=== PATIENT | female | born 1995 | race Caucasian/White ===

== ENCOUNTER 2017-05-18 13:45 | Emergency (ER) | payer MEDICAID ==
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
--- NOTE | 2017-05-21 14:02 | US ---
OB ultrasound. Findings: Single live intrauterine . [place]-rump length 6.6 cm. This correlates to 13 weeks 0 days gestation. Estimated delivery date 11/23/2017. Heart rate 156 bpm. Posterior located placenta ap pears unremarkable. No abruption. Left ovary unremarkable. Right ovary not seen. Impression: 1. Single live imaging of at 13 weeks gestation. Recommend anatomic survey 20 weeks.
== END 2017-05-18 16:10 | disposition home or self-care (01) ==
LOC: JP.ED 13:45
DX: O9A.211 Injury, poisoning and certain other consequences of external causes complicating pregnancy, first trimester (principal); S30.1XXA Contusion of abdominal wall, initial encounter; V49.9XXA Car occupant (driver) (passenger) injured in unspecified traffic accident, initial encounter; Z91.048 Other nonmedicinal substance allergy status; Z79.899 Other long term (current) drug therapy; Z3A.13 13 weeks gestation of pregnancy
CPT/HCPCS: 76815; 76815-26; 99284-25

== ENCOUNTER 2017-11-13 11:15 | Inpatient (IN) | payer MEDICAID ==
[2017-11-13] MEDS ORDERED: Misoprostol 50 MCG (1/2 of 100 MCG) Tab VAG ONE (11:57)
[2017-11-13] MEDS ORDERED: Acetaminophen 325 MG Tab PO PRN (12:10)
[2017-11-13] MEDS ORDERED: Ondansetron 4 MG Tab.DIS PO PRN (12:10)
[2017-11-13] MEDS ORDERED: Sodium Chloride 0.9% 10 ML Syringe FLUSH PRN (12:10)
--- NOTE | 2017-11-13 12:20 | PCM.LDHP ---
L&D History of Present Illness - General Date of Service: 11/13/17 (labor) Admit Problem/Dx: Patient Status Order with Admit Dx/Problem 11/13/17 12:10 Patient Status [ADT] Routine Admission Diagnosis/Problem Admission Diagnosis/Problem Source of Information: Patient History Limitations: Reports: No Limitations - History of Present Illness Introduction:: 21 year old 39 1/7 weeks with contractions. She is GBS positive. CE / and darell in the office this morning. Will augment contractions with Misoprostol vaginally LABS: ABO A pos HIV neg Rubella immune GBS pos Timing/Duration: Reports: minutes: (5) Location, : Reports: Abdomen Quality: Reports: Pressure Severity: Mild Improves with: Reports: None Worsens with: Reports: None - Related Data Allergies/Adverse Reactions: Allergies Allergy/AdvReac Type Severity Reaction Status Date / Time cat dander Allergy Other Verified 05/18/17 14:21 Home Medications: Home Meds Pnv with Ca,No.74/Iron/Fa [ Low Iron Tablet] 1 tab PO DAILY 05/18/17 [ History] Past Medical History - Past Health History Medical/Surgical History: Denies Medical/Surgical History Social & Family History - Family History HEENT: Reports: None Cardiac: Reports: CAD Respiratory: Reports: Asthma Musculoskeletal: Reports: Fibromyalgia - Tobacco Use Smoking Status *Q: Never Smoker Second Hand Smoke Exposure: No - Caffeine Use Caffeine Use: Reports: Soda, Tea - Recreational Drug Use Recreational Drug Use: No H&P Review of Systems - Review of Systems: Review Of Systems: See Below General: Reports: No Symptoms HEENT: Reports: No Symptoms Pulmonary: Reports: No Symptoms Cardiovascular: Reports: No Symptoms Gastrointestinal: Reports: No Symptoms Genitourinary: Reports: No Symptoms Musculoskeletal: Reports: No Symptoms Skin: Reports: No Symptoms Psychiatric: Reports: No Symptoms Neurological: Reports: No Symptoms Hematologic/Lymphatic: Reports: No Symptoms Immunologic: Reports: No Symptoms L&D Exam - Exam Exam: See Below - Vital Signs Weight: 195 lb - OB Specific Contraction Intensity: Mild Movement: Active Heart Tones: Present Heart Tones per Min: 144 Heart Rate (FHR) Variability: Moderate (6-25 bmp) Presentation: Vertex Estimated Weight: 8 pounds - Cade Score Cade Score Cervix Position: Anterior Cade Score Consistency: Soft Cade Score Effacement: 51-70% Cade Score Dilation: 3-4 cm Cade Score Infant's Station: -1 ,0 Cade Score Total: 10 - Exam General: Alert, Oriented HEENT: PERRLA, Pupils Equal Neck: Supple Lungs: Clear to Auscultation, Normal Respiratory Effort Cardiovascular: Regular Rate, Regular Rhythm GI/Abdominal Exam: Normal Bowel Sounds Rectal Exam: Normal Exam Genitourinary: Normal external exam, Cervical dilitation, Enlarged uterus Back Exam: Normal Inspection Extremities: Normal Inspection, No Pedal Edema Skin: Warm, Dry Neurological: Cranial Nerves Intact, Reflexes Equal Bilateral Psychiatric: Alert, Normal Affect, Normal Mood - Patient Data Lab Results Last 24 hrs: Laboratory Results - last 24 hr 11/13/17 Range/Units 11:55 WBC 11.6 H (4.5-11.0) K/uL RBC 4.91 (3.30-5.50) M/uL Hgb 12.4 (12.0-15.0) g/dL Hct 39.0 (36.0-48.0) % MCV 79 L (80-98) fL MCH 25 L (27-31) pg MCHC 32 (32-36) % Plt Count 405 H (150-400) K/uL Neut % (Auto) 66 (36-66) % Lymph % (Auto) 25 (24-44) % [place] % (Auto) 7 H (2-6) % Eos % (Auto) 2 (2-4) % Baso % (Auto) 0 (0-1) % Result Diagrams: 11/13/17 11:55 - Problem List (1) SNOMED Code(s): 15742999 ICD Code: Z34.90 - ENCNTR FOR SUPRVSN OF NORMAL , UNSP, UNSP TRIMESTER Status: Acute Current Visit: Yes Qualifiers: Weeks of gestation: 39 weeks Qualified Code(s): Z3A.39 - 39 weeks gestation of (2) Active labor at term SNOMED Code(s): 86203234 ICD Code: VSZ7065 - Status: Acute Current Visit: Yes Problem List Initiated/Reviewed/Updated: Yes Orders Last 24hrs: Active Orders 24 hr Category Date Time Status Patient Status [ADT] Routine ADT 11/13/17 12:10 Ordered Antiembolic Devices [RC] .Routine Care 11/13/17 12:12 Ordered Heart Tones [RC] INTERMITTENT Care 11/13/17 12:11 Ordered May Shower [RC] ASDIRECTED Care 11/13/17 12:10 Ordered Notify Provider [RC] PRN Care 11/13/17 12:10 Ordered Peripheral IV Care [RC] . DIRECTED Care 11/13/17 12:12 Ordered Up ad Rut [RC] ASDIRECTED Care 11/13/17 12:10 Ordered VTE/DVT Education [RC] Click to Edit Care 11/13/17 12:12 Ordered Vital Signs [RC] PER UNIT ROUTINE Care 11/13/17 12:10 Ordered Regular Diet [DIET] Diet 11/13/17 Lunch Ordered URINALYSIS W/MICROSCOPIC [UA W/MICROSCOPIC] [URIN] Lab 11/13/17 11:24 Ordered Routine Acetaminophen [Tylenol] Med 11/13/17 12:10 Ordered 650 mg PO Q4H PRN Ondansetron [Zofran ODT] Med 11/13/17 12:10 Ordered 4 mg PO Q4H PRN Oxytocin/Normal Saline [Pitocin in NS 20 Units/1,000 ML Med 11/13/17 12:13 Ordered ] 20 unit in 1,000 ml IV ONETIME Penicillin G Potassium [Pfizerpen] 2.5 millunits Med 11/13/17 12:15 Ordered Sodium Chloride 0.9% [Normal Saline] 50 ml IV Q4H Penicillin G Potassium [Pfizerpen] 5 millunits Med 11/13/17 12:13 Ordered Sodium Chloride 0.9% [Normal Saline] 100 ml IV ONETIME Sodium Chloride 0.9% [Saline Flush] Med 11/13/17 12:10 Ordered 10 ml FLUSH ASDIRECTED PRN DVT/VTE Prophylaxis Reflex [OM.PC] Routine Oth 11/13/17 12:10 Ordered Peripheral IV Insertion Adult [OM.PC] Routine Oth 11/13/17 12:10 Ordered Resuscitation Status Routine Resus Stat 11/13/17 12:10 Ordered Medication Orders Acetaminophen (Tylenol) 650 mg PO Q4H PRN PRN Reason: mild pain and fever Oxytocin/Sodium Chloride (Pitocin In Ns 20 Units/1,000 Ml) 20 unit in 1,000 mls @ 999 mls/hr IV ONETIME ONE; Protocol Stop: 11/13/17 13:13 Penicillin G Potassium 5 (millunits/ Sodium Chloride) 100 mls @ 200 mls/hr IV ONETIME ONE Stop: 11/13/17 12:42 Penicillin G Potassium 2.5 (millunits/ Sodium Chloride) 50 mls @ 100 mls/hr IV Q4H [place] Ondansetron HCl (Zofran Odt) 4 mg PO Q4H PRN PRN Reason: Nausea/Vomiting Sodium Chloride (Saline Flush) 10 ml FLUSH ASDIRECTED PRN PRN Reason: Keep Vein Open Assessment/Plan Comment:: 11/13/17 39 1/7 week IUP who is darell CE /0 augment contractions with Miso vaginally monitor for active labor Plan for vaginal delivery Pain medication per patient request.
[2017-11-13] MEDS ORDERED: Penicillin G Potassium 5 MILLUNITS in Sodium Chloride 0.9% 100 ML IV ONE (12:30)
--- NOTE | 2017-11-13 16:16 | PCM.PNLD ---
Labor Progress Note - VS & Meds Vital Signs: Last Vital Signs Temp 98.2 F 11/13/17 14:00 Pulse 96 11/13/17 14:30 Resp 16 11/13/17 12:30 BP 124/82 11/13/17 14:30 Pulse Ox 99 11/13/17 14:30 Active Medications: Current Medications Acetaminophen (Tylenol) 650 mg PO Q4H PRN PRN Reason: mild pain and fever Oxytocin/Sodium Chloride (Pitocin In Ns 20 Units/1,000 Ml) 20 unit in 1,000 mls @ 999 mls/hr IV ASDIRECTED [place]; Protocol Penicillin G Potassium 2.5 (millunits/ Sodium Chloride) 50 mls @ 100 mls/hr IV Q4H [place] Lactated Ringer's (Ringers, Lactated) 1,000 mls @ 999 mls/hr IV BOLUS ONE Stop: 11/13/17 18:00 Ondansetron HCl (Zofran Odt) 4 mg PO Q4H PRN PRN Reason: Nausea/Vomiting Sodium Chloride (Saline Flush) 10 ml FLUSH ASDIRECTED PRN PRN Reason: Keep Vein Open Discontinued Medications Penicillin G Potassium 5 (millunits/ Sodium Chloride) 100 mls @ 200 mls/hr IV ONETIME ONE Stop: 11/13/17 12:59 Last Admin: 11/13/17 12:30 Dose: 200 mls/hr Misoprostol (Cytotec) 50 mcg VAG ONETIME ONE Stop: 11/13/17 11:58 Last Admin: 11/13/17 12:00 Dose: 50 mcg - Uterine Contractions Uterine Monitoring Mode: External [place] Contraction Frequency (min): x3 Contraction Duration (sec): 70 Contraction Intensity: Mild Uterine Resting Tone: Soft - Monitoring Monitor Mode: Doppler/Auscultation Heart Rate (FHR) Baseline: 145 Heart Rate (FHR) Variability: Moderate (6-25 bmp) Accelerations: Present, 15x15 Decelerations: None Strip Review: Category I - Vaginal Exam Dilation (cm): 4 Effacement (Percent): 80 Station: 1 Cervical Position: Anterior Sterile Vaginal Exam Performed By: Phyllis Ge Vaginal Exam Comment: AROM clear fliud - Labor Progress (Free Text) Labor Progress: contractions every 2 minutes, getting stronger cat one strip AROM clear fluid planning for vaginal delivery
[2017-11-13] MEDS: Penicillin G Potassium 2.5 MILLUNITS in Sodium Chloride 0.9% 50 ML IV SCH ×2 (16:24→21:42)
[2017-11-13] MEDS: fentaNYL 100 MCG/2 ML SDV IVPUSH PRN ×3 (16:45→18:51)
[2017-11-13] MEDS ORDERED: fentaNYL 100 MCG/2 ML SDV IVPUSH SCH (16:45)
[2017-11-13] MEDS ORDERED: Lactated Ringers 1,000 ML IV ONE (17:00)
--- NOTE | 2017-11-13 18:57 | PCM.PNLD ---
Labor Progress Note - VS & Meds Vital Signs: Last Vital Signs Temp 98.2 F 11/13/17 14:00 Pulse 107 H 11/13/17 15:30 Resp 18 11/13/17 15:30 BP 123/80 11/13/17 15:30 Pulse Ox 96 11/13/17 15:30 Active Medications: Current Medications Acetaminophen (Tylenol) 650 mg PO Q4H PRN PRN Reason: mild pain and fever Fentanyl (Sublimaze) 100 mcg IVPUSH Q1H PRN PRN Reason: Pain (severe 7-10) Last Admin: 11/13/17 18:51 Dose: 100 mcg Oxytocin/Sodium Chloride (Pitocin In Ns 20 Units/1,000 Ml) 20 unit in 1,000 mls @ 999 mls/hr IV ASDIRECTED [place]; Protocol Penicillin G Potassium 2.5 (millunits/ Sodium Chloride) 50 mls @ 100 mls/hr IV Q4H [place] Last Admin: 11/13/17 16:24 Dose: 100 mls/hr Ondansetron HCl (Zofran Odt) 4 mg PO Q4H PRN PRN Reason: Nausea/Vomiting Last Admin: 11/13/17 18:52 Dose: 4 mg Sodium Chloride (Saline Flush) 10 ml FLUSH ASDIRECTED PRN PRN Reason: Keep Vein Open Discontinued Medications Fentanyl (Sublimaze) 100 mcg IVPUSH Q1H [place] Penicillin G Potassium 5 (millunits/ Sodium Chloride) 100 mls @ 200 mls/hr IV ONETIME ONE Stop: 11/13/17 12:59 Last Admin: 11/13/17 12:30 Dose: 200 mls/hr Lactated Ringer's (Ringers, Lactated) 1,000 mls @ 999 mls/hr IV BOLUS ONE Stop: 11/13/17 18:00 Misoprostol (Cytotec) 50 mcg VAG ONETIME ONE Stop: 11/13/17 11:58 Last Admin: 11/13/17 12:00 Dose: 50 mcg - Uterine Contractions Uterine Monitoring Mode: External [place] Contraction Frequency (min): 1 Contraction Duration (sec): 30-70 Contraction Intensity: Strong Uterine Resting Tone: Soft - Monitoring Monitor Mode: Doppler/Auscultation Heart Rate (FHR) Baseline: 145 Heart Rate (FHR) Variability: Moderate (6-25 bmp) Accelerations: Present, 15x15 Decelerations: None Strip Review: Category I - Vaginal Exam Dilation (cm): 5 Effacement (Percent): 90 Station: 1 Cervical Position: Anterior Sterile Vaginal Exam Performed By: Phyllis Ge Vaginal Exam Comment: lots of pressure and pain, requesting Fentanyl - Labor Progress (Free Text) Labor Progress: Has been in the tub for 2 hours, doing great. progress now active labor.
[2017-11-13] MEDS ORDERED: Lidocaine 1% 50 ML MDV ONE (19:23)
[2017-11-13] MEDS ORDERED: Lanolin 100% Cream 40 GM Tube TOP PRN (21:14)
[2017-11-13] MEDS ORDERED: Benzocaine 20% Top Spray 56 GM Bottle TOP PRN (21:14)
[2017-11-13] MEDS ORDERED: Witch Hazel Medicated Pads 100/Jar TOP PRN (21:14)
[2017-11-13] MEDS ORDERED: Acetaminophen 325 MG Tab, 50 Tab Bulk Bottle PO PRN (21:16)
[2017-11-13] MEDS ORDERED: Ibuprofen 200 MG Tab, 24 Tab Bulk Bottle PO PRN (21:16)
--- NOTE | 2017-11-13 21:24 | PCM.DEL ---
L & D Note - General Info Date of Service: 11/13/17 (Childbirth) - Delivery Note Labor: Spontaneous Cervical Ripening Method: Misoprostil Delivery Outcome: Livebirth Infant Delivery Method: Spontaneous Vaginal Delivery-Single Infant Delivery Mode: Spontaneous Presentation: Right Occiput Anterior (LENARD) Nuchal Cord: Present Anesthesia Type: Local Anesthetic: Lidocaine (Xylocaine) 1% Plain Local Anesthetic Volume: 5cc Amniotic Fluid Description: Clear Episiotomy Type: None Laceration: 1st Degree, Perineal Suture type: Vicryl Suture size: 3-0 Placenta: Intact, Spontaneous Cord: 3 Vessels Estimated Blood Loss: 300 Resuscitation Needed: Yes [place]: Bulb Syringe, Stimulated, Warmed, [place] Used, Warmer Used Provider: Phyllis Ge Score 1 min: 6 Score 5 min: 8 Score 10 min: 8 Second Stage Interventions: Reports: Second Nurse Reviewed Heart Tones, Encouragement Given, Pushing Effectively, Pushing, McRobert's Position, Pushing , Pulls Own Legs Back Delivery Comments (Free Text/Narrative):: This 21 year old G1 now P1 who is 39 1/7 weeks gestation delivered at 2035 via a female infant in [facility]. Mother had pushed for an hour with different position changes. The baby presented with a tight nuchal cord and and and anterior hand presentation. I could not reduce the cord manually so it was clamped and cut and baby was delivered onto mother's abdomen. She was floppy and pale. She was taken to the warmer where she was dried and stimulated. She made no effort to cry. I started PPV and after 30 second she started crying. Her heart rate was in the 140's and her O2 sats high 90's. She transitioned slowly and had apgars of 6,8,8. Lungs were clear and she is awake and alert. Three vessel cord. The placenta was expressed spontaneously intact . three vessel cord. Winter had a small first degree perineal tear which was repaired with 3-0 vicryl.. No lacerations of the cervix, rectum, vagina were found. EBL 300cc Mother and baby to post and nursery in stable condition. first stage 6136-2414 Second stage 1280-3723 Third stage 4610-8518 Weight 6-6 Induction Criteria - Cade Score Cade Score Dilation: 3-4 cm Cade Score Effacement: 60-70% Cade Score 's Station: -1 ,0 Cade Score Consistency: Soft Cade Score Cervix Position: Anterior Cade Score Total: 10 Cade Score Presenting Part: Reports: Cephalic - Augmentation Estimated Pelvis: Reports: Adequate Weight Estimated:: Reports: AGA Reassuring Monitoring Strip: Yes Absence of Tachy Systole: Yes - General Info Date of Service: 11/13/17 Functional Status: Reports: Pain Controlled - Review of Systems General: Reports: No Symptoms HEENT: Reports: No Symptoms Pulmonary: Reports: No Symptoms Cardiovascular: Reports: No Symptoms Gastrointestinal: Reports: No Symptoms Genitourinary: Reports: No Symptoms Musculoskeletal: Reports: No Symptoms Skin: Reports: No Symptoms Neurological: Reports: No Symptoms Psychiatric: Reports: No Symptoms - Patient Data Vitals - Most Recent: Last Vital Signs Temp 98.2 F 11/13/17 14:00 Pulse 107 H 11/13/17 15:30 Resp 18 11/13/17 15:30 BP 123/80 11/13/17 15:30 Pulse Ox 96 11/13/17 15:30 Weight - Most Recent: 195 lb I&O - Last 24 Hours: Intake & Output 11/13/17 11/13/17 11/13/17 06:59 14:59 22:59 Intake Total 100 50 Balance 100 50 Lab Results Last 24 Hours: Laboratory Results - last 24 hr 11/13/17 11/13/17 11/13/17 Range/Units 11:24 11:55 15:29 WBC 11.6 H (4.5-11.0) K/uL RBC 4.91 (3.30-5.50) M/uL Hgb 12.4 (12.0-15.0) g/dL Hct 39.0 (36.0-48.0) % MCV 79 L (80-98) fL MCH 25 L (27-31) pg MCHC 32 (32-36) % Plt Count 405 H (150-400) K/uL Neut % (Auto) 66 (36-66) % Lymph % (Auto) 25 (24-44) % [place] % (Auto) 7 H (2-6) % Eos % (Auto) 2 (2-4) % Baso % (Auto) 0 (0-1) % Urine Color Yellow Urine Appearance Slightly cloudy Urine pH 9.0 H (4.5-8.0) Ur Specific [place] 1.010 (1.008-1.030) Urine Protein Negative (NEGATIVE) mg/dL Urine Glucose (UA) Normal (NEGATIVE) mg/dL Urine Ketones Negative (NEGATIVE) mg/dL Urine Occult Blood Negative (NEGATIVE) Urine Nitrite Negative (NEGATIVE) Urine Bilirubin Negative (NEGATIVE) Urine Urobilinogen Normal (NORMAL) mg/dL Ur Leukocyte Esterase Negative (NEGATIVE) Urine RBC 0-5 (0-5) Urine WBC 0-5 (0-5) Ur Epithelial Cells Many Amorphous Sediment Not seen Urine Bacteria Moderate Urine Mucus Moderate Urine Opiates Screen Negative (NEGATIVE) Ur Oxycodone Screen Negative (NEGATIVE) Urine Methadone Screen Negative (NEGATIVE) Ur Propoxyphene Screen Negative (NEGATIVE) Ur Barbiturates Screen Negative (NEGATIVE) Ur Tricyclics Screen Negative (NEGATIVE) Ur Phencyclidine Scrn Negative (NEGATIVE) Ur Amphetamine Screen Negative (NEGATIVE) U Methamphetamines Scrn Negative (NEGATIVE) Urine MDMA Screen Negative (NEGATIVE) U Benzodiazepines Scrn Negative (NEGATIVE) U Cocaine Metab Screen Negative (NEGATIVE) U Marijuana (THC) Screen Negative (NEGATIVE) Med Orders - Current: Current Medications Acetaminophen (Tylenol) 650 mg PO Q4H PRN PRN Reason: mild pain and fever Fentanyl (Sublimaze) 100 mcg IVPUSH Q1H PRN PRN Reason: Pain (severe 7-10) Last Admin: 11/13/17 18:51 Dose: 100 mcg Oxytocin/Sodium Chloride (Pitocin In Ns 20 Units/1,000 Ml) 20 unit in 1,000 mls @ 999 mls/hr IV ASDIRECTED [place]; Protocol Penicillin G Potassium 2.5 (millunits/ Sodium Chloride) 50 mls @ 100 mls/hr IV Q4H [place] Last Admin: 11/13/17 16:24 Dose: 100 mls/hr Ondansetron HCl (Zofran Odt) 4 mg PO Q4H PRN PRN Reason: Nausea/Vomiting Last Admin: 11/13/17 18:52 Dose: 4 mg Sodium Chloride (Saline Flush) 10 ml FLUSH ASDIRECTED PRN PRN Reason: Keep Vein Open Discontinued Medications Fentanyl (Sublimaze) 100 mcg IVPUSH Q1H [facility] Penicillin G Potassium 5 (millunits/ Sodium Chloride) 100 mls @ 200 mls/hr IV ONETIME ONE Stop: 11/13/17 12:59 Last Admin: 11/13/17 12:30 Dose: 200 mls/hr Lactated Ringer's (Ringers, Lactated) 1,000 mls @ 999 mls/hr IV BOLUS ONE Stop: 11/13/17 18:00 Lidocaine HCl (Xylocaine 1%) Confirm Administered Dose 100 ml .ROUTE .STK-MED ONE Stop: 11/13/17 19:24 Misoprostol (Cytotec) 50 mcg VAG ONETIME ONE Stop: 11/13/17 11:58 Last Admin: 11/13/17 12:00 Dose: 50 mcg - Exam General: Alert, Oriented HEENT: Pupils Equal Neck: Supple Lungs: Clear to Auscultation, Normal Respiratory Effort Cardiovascular: Regular Rate, Regular Rhythm GI/Abdominal Exam: Normal Bowel Sounds (Female) Exam: Cervical Dilatation, Enlarged Uterus, Vaginal Bleeding Back Exam: Normal Inspection Extremities: Normal Inspection, Normal Range of Motion, No Pedal Edema, Normal Capillary Refill Skin: Warm Wound/Incisions: Healing Well Neurological: No New Focal Deficit Psy/Mental Status: Alert, Normal Affect, Normal Mood - Problem List & Annotations (1) SNOMED Code(s): 44540082 Code(s): Z34.90 - ENCNTR FOR SUPRVSN OF NORMAL , UNSP, UNSP TRIMESTER Status: Acute Current Visit: Yes Qualifiers: Weeks of gestation: 39 weeks Qualified Code(s): Z3A.39 - 39 weeks gestation of (2) Active labor at term SNOMED Code(s): 16786426 Code(s): NVF2839 - Status: Acute Current Visit: Yes (3) () SNOMED Code(s): 419594005 Code(s): Z78.9 - OTHER SPECIFIED HEALTH STATUS Status: Acute Current Visit: Yes (4) Normal labor and delivery SNOMED Code(s): 40964524, 720967118 Code(s): O80 - ENCOUNTER FOR FULL-TERM UNCOMPLICATED DELIVERY Status: Acute Current Visit: Yes (5) GBS (group B Streptococcus carrier), +RV culture, currently SNOMED Code(s): 6329237196906, 729992904, 6161709157916 Code(s): O99.820 - STREPTOCOCCUS B CARRIER STATE COMPLICATING Status: Acute Current Visit: Yes - Problem List Review Problem List Initiated/Reviewed/Updated: Yes - My Orders Last 24 Hours: My Active Orders 11/13/17 12:10 Patient Status [ADT] Routine May Shower [RC] ASDIRECTED Notify Provider [RC] PRN Up ad Rut [RC] ASDIRECTED Vital Signs [RC] PER UNIT ROUTINE Acetaminophen [Tylenol] 650 mg PO Q4H PRN Ondansetron [Zofran ODT] 4 mg PO Q4H PRN Sodium Chloride 0.9% [Saline Flush] 10 ml FLUSH ASDIRECTED PRN DVT/VTE Prophylaxis Reflex [OM.PC] Routine Peripheral IV Insertion Adult [OM.PC] Routine Resuscitation Status Routine 11/13/17 12:12 Antiembolic Devices [RC] .Routine Peripheral IV Care [RC] . DIRECTED VTE/DVT Education [RC] Click to Edit 11/13/17 12:13 Oxytocin/Normal Saline [Pitocin in NS 20 Units/1,000 ML] 20 unit in 1,000 ml IV ASDIRECTED 11/13/17 16:30 Penicillin G Potassium [Pfizerpen] 2.5 millunits Sodium Chloride 0.9% [Normal Saline] 50 ml IV Q4H 11/13/17 16:40 fentaNYL [Sublimaze] 100 mcg IVPUSH Q1H PRN 11/13/17 21:14 Patient Status [ADT] Routine Vital Signs [RC] PFP Benzocaine [[id number] 20% [place]] See Dose Instructions TOP Q4H PRN Lanolin [Lansinoh HPA] 1 gm TOP ASDIRECTED PRN Witch Svetlana [Tucks] 1 pad TOP ASDIRECTED PRN Assess Uterine Involution [WOMSER] Per Unit Routine 11/13/17 21:15 Ice Therapy [OM.PC] Per Unit Routine Perineal Care [OM.PC] Per Unit Routine Peripheral IV Discontinue [OM.PC] Routine Sitz Bath [OM.PC] Per Unit Routine 11/13/17 21:16 Acetaminophen [Tylenol Bulk Bottle] 325 mg PO Q4H PRN Ibuprofen [Motrin Bulk Bottle] 600 mg PO Q6H PRN 11/13/17 Lunch Regular Diet [DIET] 11/14/17 05:11 CBC WITH AUTO DIFF [HEME] AM - Assessment Assessment:: 11/13/17 21 year old 39 1/7 with tight nuchal cord and hand by face. Small first degree tear with repair female . - Plan Plan:: 11/13/17 39 1/7 week IUP who is darell CE / augment contractions with Miso vaginally monitor for active labor Plan for vaginal delivery Pain medication per patient request. 11/13/17 Routine cares support 48 hour stay due to positive GSB status cbc in am
[2017-11-13] MEDS ORDERED: Acetaminophen/Codeine 300-30 MG Tab PO PRN (22:03)
[2017-11-14] MEDS: Penicillin G Potassium 2.5 MILLUNITS in Sodium Chloride 0.9% 50 ML IV SCH ×2 (05:31→05:32)
--- NOTE | 2017-11-14 08:27 | PCM.PNPP ---
- General Info Date of Service: 11/14/17 (PPD 1) Admission Dx/Problem (Free Text): Patient Status Order with Admit Dx/Problem 11/13/17 12:10 Patient Status [ADT] Routine Admission Diagnosis/Problem Admission Diagnosis/Problem Functional Status: Reports: Pain Controlled - Review of Systems General: Reports: No Symptoms HEENT: Reports: No Symptoms Pulmonary: Reports: No Symptoms Cardiovascular: Reports: No Symptoms Gastrointestinal: Reports: No Symptoms Genitourinary: Reports: No Symptoms Musculoskeletal: Reports: No Symptoms Skin: Reports: No Symptoms Neurological: Reports: No Symptoms Psychiatric: Reports: No Symptoms - General Info Date of Service: 11/14/17 - Patient Data Vital Signs - Most Recent: Last Vital Signs Temp 97.2 F 11/14/17 07:29 Pulse 78 11/14/17 07:29 Resp 16 11/14/17 07:29 BP 110/65 11/14/17 07:29 Pulse Ox 97 11/14/17 07:29 Weight - Most Recent: 195 lb I&O - Last 24 Hours: Intake & Output 11/13/17 11/14/17 11/14/17 22:59 06:59 14:59 Intake Total 50 1100 Balance 50 1100 Lab Results - Last 24 Hours: Laboratory Results - last 24 hr 11/13/17 11/13/17 11/13/17 Range/Units 11:24 11:55 15:29 WBC 11.6 H (4.5-11.0) K/uL RBC 4.91 (3.30-5.50) M/uL Hgb 12.4 (12.0-15.0) g/dL Hct 39.0 (36.0-48.0) % MCV 79 L (80-98) fL MCH 25 L (27-31) pg MCHC 32 (32-36) % Plt Count 405 H (150-400) K/uL Neut % (Auto) 66 (36-66) % Lymph % (Auto) 25 (24-44) % [place] % (Auto) 7 H (2-6) % Eos % (Auto) 2 (2-4) % Baso % (Auto) 0 (0-1) % Urine Color Yellow Urine Appearance Slightly cloudy Urine pH 9.0 H (4.5-8.0) Ur Specific [place] 1.010 (1.008-1.030) Urine Protein Negative (NEGATIVE) mg/dL Urine Glucose (UA) Normal (NEGATIVE) mg/dL Urine Ketones Negative (NEGATIVE) mg/dL Urine Occult Blood Negative (NEGATIVE) Urine Nitrite Negative (NEGATIVE) Urine Bilirubin Negative (NEGATIVE) Urine Urobilinogen Normal (NORMAL) mg/dL Ur Leukocyte Esterase Negative (NEGATIVE) Urine RBC 0-5 (0-5) Urine WBC 0-5 (0-5) Ur Epithelial Cells Many Amorphous Sediment Not seen Urine Bacteria Moderate Urine Mucus Moderate Urine Opiates Screen Negative (NEGATIVE) Ur Oxycodone Screen Negative (NEGATIVE) Urine Methadone Screen Negative (NEGATIVE) Ur Propoxyphene Screen Negative (NEGATIVE) Ur Barbiturates Screen Negative (NEGATIVE) Ur Tricyclics Screen Negative (NEGATIVE) Ur Phencyclidine Scrn Negative (NEGATIVE) Ur Amphetamine Screen Negative (NEGATIVE) U Methamphetamines Scrn Negative (NEGATIVE) Urine MDMA Screen Negative (NEGATIVE) U Benzodiazepines Scrn Negative (NEGATIVE) U Cocaine Metab Screen Negative (NEGATIVE) U Marijuana (THC) Screen Negative (NEGATIVE) 11/14/17 Range/Units 05:56 WBC 22.3 H (4.5-11.0) K/uL RBC 4.83 (3.30-5.50) M/uL Hgb 12.5 (12.0-15.0) g/dL Hct 38.1 (36.0-48.0) % MCV 79 L (80-98) fL MCH 26 L (27-31) pg MCHC 33 (32-36) % Plt Count 395 (150-400) K/uL Neut % (Auto) 78 H (36-66) % Lymph % (Auto) 15 L (24-44) % [place] % (Auto) 7 H (2-6) % Eos % (Auto) 0 L (2-4) % Baso % (Auto) 0 (0-1) % Urine Color Urine Appearance Urine pH (4.5-8.0) Ur Specific [place] (1.008-1.030) Urine Protein (NEGATIVE) mg/dL Urine Glucose (UA) (NEGATIVE) mg/dL Urine Ketones (NEGATIVE) mg/dL Urine Occult Blood (NEGATIVE) Urine Nitrite (NEGATIVE) Urine Bilirubin (NEGATIVE) Urine Urobilinogen (NORMAL) mg/dL Ur Leukocyte Esterase (NEGATIVE) Urine RBC (0-5) Urine WBC (0-5) Ur Epithelial Cells Amorphous Sediment Urine Bacteria Urine Mucus Urine Opiates Screen (NEGATIVE) Ur Oxycodone Screen (NEGATIVE) Urine Methadone Screen (NEGATIVE) Ur Propoxyphene Screen (NEGATIVE) Ur Barbiturates Screen (NEGATIVE) Ur Tricyclics Screen (NEGATIVE) Ur Phencyclidine Scrn (NEGATIVE) Ur Amphetamine Screen (NEGATIVE) U Methamphetamines Scrn (NEGATIVE) Urine MDMA Screen (NEGATIVE) U Benzodiazepines Scrn (NEGATIVE) U Cocaine Metab Screen (NEGATIVE) U Marijuana (THC) Screen (NEGATIVE) Med Orders - Current: Current Medications Acetaminophen (Tylenol) 650 mg PO Q4H PRN PRN Reason: mild pain and fever Acetaminophen (Tylenol Bulk Bottle) 325 - 650 mg PO Q4H PRN PRN Reason: Pain Last Admin: 11/13/17 22:07 Dose: 650 mg Acetaminophen/Codeine Phosphate (Tylenol With Codeine No.3 300mg/30mg) 1 tab PO Q6H PRN PRN Reason: Abdominal Pain Benzocaine (Fymm-D-Kmcsvwt 20% [place]) 0 gm TOP Q4H PRN PRN Reason: Perineal Comfort Measure Last Admin: 11/13/17 21:49 Dose: 1 spray Emollient Ointment (Lansinoh Hpa) 0 gm TOP ASDIRECTED PRN PRN Reason: Sore Nipples Fentanyl (Sublimaze) 100 mcg IVPUSH Q1H PRN PRN Reason: Pain (severe 7-10) Last Admin: 11/13/17 18:51 Dose: 100 mcg Oxytocin/Sodium Chloride (Pitocin In Ns 20 Units/1,000 Ml) 20 unit in 1,000 mls @ 999 mls/hr IV ASDIRECTED [facility]; Protocol Last Admin: 11/13/17 20:37 Dose: 999 mls/hr, 999 mls/hr Ibuprofen (Motrin Bulk Bottle) 600 mg PO Q6H PRN PRN Reason: Pain Last Admin: 11/13/17 21:50 Dose: 600 mg Ondansetron HCl (Zofran Odt) 4 mg PO Q4H PRN PRN Reason: Nausea/Vomiting Last Admin: 11/13/17 18:52 Dose: 4 mg Sodium Chloride (Saline Flush) 10 ml FLUSH ASDIRECTED PRN PRN Reason: Keep Vein Open Witch Svetlana (Tucks) 1 pad TOP ASDIRECTED PRN PRN Reason: Hemorrhoids Last Admin: 11/13/17 21:50 Dose: 1 pad Discontinued Medications Fentanyl (Sublimaze) 100 mcg IVPUSH Q1H [facility] Penicillin G Potassium 5 (millunits/ Sodium Chloride) 100 mls @ 200 mls/hr IV ONETIME ONE Stop: 11/13/17 12:59 Last Admin: 11/13/17 12:30 Dose: 200 mls/hr Penicillin G Potassium 2.5 (millunits/ Sodium Chloride) 50 mls @ 100 mls/hr IV Q4H [facility] Last Admin: 11/14/17 05:32 Dose: Not Given Lactated Ringer's (Ringers, Lactated) 1,000 mls @ 999 mls/hr IV BOLUS ONE Stop: 11/13/17 18:00 Last Admin: 11/13/17 19:30 Dose: 25 mls/hr Lidocaine HCl (Xylocaine 1%) Confirm Administered Dose 100 ml .ROUTE .STK-MED ONE Stop: 11/13/17 19:24 Last Admin: 11/13/17 21:42 Dose: 100 ml Misoprostol (Cytotec) 50 mcg VAG ONETIME ONE Stop: 11/13/17 11:58 Last Admin: 11/13/17 12:00 Dose: 50 mcg - Infant Interaction Disposition, : in Room with Family Interaction: Holding Infant Feeding: Attempted ; Nursed Fair/Poor Support Person: - Recovery Exam Fundal Tone: Firm Fundal Level: At Umbilicus Fundal Placement: Midline Lochia Amount: Small Lochia Color: Rubra/Red Perineum Description: Intact, Minimal Bruising/Swelling Episiotomy/Laceration: Approximated Bladder Status: Voiding Urinary Elimination: Voided - Exam General: Alert, Oriented HEENT: Pupils Equal, Pupils Reactive Neck: Supple Lungs: Clear to Auscultation, Normal Respiratory Effort Cardiovascular: Regular Rate, Regular Rhythm GI/Abdominal Exam: Soft, Non-Tender Extremities: Normal Inspection, No Pedal Edema Skin: Warm, Dry Wound/Incisions: Healing Well Neurological: No New Focal Deficit Psy/Mental Status: Alert, Normal Affect, Normal Mood - Problem List & Annotations (1) SNOMED Code(s): 77520848 Code(s): Z34.90 - ENCNTR FOR SUPRVSN OF NORMAL , UNSP, UNSP TRIMESTER Status: Acute Current Visit: Yes Qualifiers: Weeks of gestation: 39 weeks Qualified Code(s): Z3A.39 - 39 weeks gestation of (2) Active labor at term SNOMED Code(s): 65524347 Code(s): KEP8435 - Status: Acute Current Visit: Yes (3) () SNOMED Code(s): 842263537 Code(s): Z78.9 - OTHER SPECIFIED HEALTH STATUS Status: Acute Current Visit: Yes (4) Normal labor and delivery SNOMED Code(s): 52720429, 021931304 Code(s): O80 - ENCOUNTER FOR FULL-TERM UNCOMPLICATED DELIVERY Status: Acute Current Visit: Yes (5) GBS (group B Streptococcus carrier), +RV culture, currently SNOMED Code(s): 2092636523891, 606285368, 1325866749317 Code(s): O99.820 - STREPTOCOCCUS B CARRIER STATE COMPLICATING Status: Acute Current Visit: Yes - Problem List Review Problem List Initiated/Reviewed/Updated: Yes - My Orders Last 24 Hours: My Active Orders 11/13/17 12:10 Patient Status [ADT] Routine May Shower [RC] ASDIRECTED Notify Provider [RC] PRN Up ad Rut [RC] ASDIRECTED Vital Signs [RC] Q4H Acetaminophen [Tylenol] 650 mg PO Q4H PRN Ondansetron [Zofran ODT] 4 mg PO Q4H PRN Sodium Chloride 0.9% [Saline Flush] 10 ml FLUSH ASDIRECTED PRN DVT/VTE Prophylaxis Reflex [OM.PC] Routine Peripheral IV Insertion Adult [OM.PC] Routine Resuscitation Status Routine 11/13/17 12:12 Antiembolic Devices [RC] .Routine Peripheral IV Care [RC] Q12H VTE/DVT Education [RC] Click to Edit 11/13/17 12:13 Oxytocin/Normal Saline [Pitocin in NS 20 Units/1,000 ML] 20 unit in 1,000 ml IV ASDIRECTED 11/13/17 16:40 fentaNYL [Sublimaze] 100 mcg IVPUSH Q1H PRN 11/13/17 21:14 Patient Status [ADT] Routine Benzocaine [Amig-M-Jsfcikf 20% [place]] See Dose Instructions TOP Q4H PRN Lanolin [Lansinoh HPA] 0 gm TOP ASDIRECTED PRN Melonie Svetlana [Tucks] 1 pad TOP ASDIRECTED PRN Assess Uterine Involution [WOMSER] Per Unit Routine 11/13/17 21:15 Ice Therapy [OM.PC] Per Unit Routine Perineal Care [OM.PC] Per Unit Routine Peripheral IV Discontinue [OM.PC] Routine Sitz Bath [OM.PC] Per Unit Routine 11/13/17 21:16 Acetaminophen [Tylenol Bulk Bottle] 325 - 650 mg PO Q4H PRN Ibuprofen [Motrin Bulk Bottle] 600 mg PO Q6H PRN 11/13/17 22:03 Acetaminophen/Codeine [Tylenol with Codeine No.3 300MG/30MG] 1 tab PO Q6H PRN 11/13/17 Lunch Regular Diet [DIET] - Assessment Assessment:: 11/13/17 21 year old 39 1/7 with tight nuchal cord and hand by face. Small first degree tear with repair female . 11/14/17 Happy feeling good bottom not sore, small repair bresastfeeding no latch voiding and flow is light HGB 12.5 - Plan Plan:: 11/13/17 39 1/7 week IUP who is darell CE 75/0 augment contractions with Miso vaginally monitor for active labor Plan for vaginal delivery Pain medication per patient request. 11/13/17 Routine cares support 48 hour stay due to positive GSB status cbc in am 11/14/17 continue routine cares lots of work the next two days home Sunday morning See me the first week of Nov for a post visit
[2017-11-14] MEDS: Docusate Sodium 100 MG Cap PO PRN (15:12)
--- NOTE | 2017-11-15 08:18 | PCM.PNPP ---
- General Info Date of Service: 11/15/17 Functional Status: Reports: Pain Controlled - Review of Systems General: Reports: No Symptoms HEENT: Reports: No Symptoms Pulmonary: Reports: No Symptoms Cardiovascular: Reports: No Symptoms Gastrointestinal: Reports: No Symptoms Genitourinary: Reports: No Symptoms Musculoskeletal: Reports: No Symptoms Skin: Reports: No Symptoms Neurological: Reports: No Symptoms Psychiatric: Reports: No Symptoms - General Info Date of Service: 11/15/17 - Patient Data Vital Signs - Most Recent: Last Vital Signs Temp 37.3 C 11/15/17 03:00 Pulse 70 11/15/17 03:00 Resp 18 11/15/17 03:00 BP 111/66 11/15/17 03:00 Pulse Ox 93 L 11/15/17 03:00 Weight - Most Recent: 88.451 kg I&O - Last 24 Hours: Intake & Output 11/14/17 11/15/17 11/15/17 22:59 06:59 14:59 Intake Total 450 Balance 450 Med Orders - Current: Current Medications Acetaminophen (Tylenol) 650 mg PO Q4H PRN PRN Reason: mild pain and fever Acetaminophen (Tylenol Bulk Bottle) 325 - 650 mg PO Q4H PRN PRN Reason: Pain Last Admin: 11/13/17 22:07 Dose: 650 mg Acetaminophen/Codeine Phosphate (Tylenol With Codeine No.3 300mg/30mg) 1 tab PO Q6H PRN PRN Reason: Abdominal Pain Benzocaine (Tevl-K-Jjkurmu 20% [place]) 0 gm TOP Q4H PRN PRN Reason: Perineal Comfort Measure Last Admin: 11/13/17 21:49 Dose: 1 spray Docusate Sodium (Colace) 100 mg PO BID PRN PRN Reason: Constipation Last Admin: 11/14/17 15:12 Dose: 100 mg Emollient Ointment (Lansinoh Hpa) 0 gm TOP ASDIRECTED PRN PRN Reason: Sore Nipples Fentanyl (Sublimaze) 100 mcg IVPUSH Q1H PRN PRN Reason: Pain (severe 7-10) Last Admin: 11/13/17 18:51 Dose: 100 mcg Oxytocin/Sodium Chloride (Pitocin In Ns 20 Units/1,000 Ml) 20 unit in 1,000 mls @ 999 mls/hr IV ASDIRECTED [facility]; Protocol Last Admin: 11/13/17 20:37 Dose: 999 mls/hr, 999 mls/hr Ibuprofen (Motrin Bulk Bottle) 600 mg PO Q6H PRN PRN Reason: Pain Last Admin: 11/13/17 21:50 Dose: 600 mg Ondansetron HCl (Zofran Odt) 4 mg PO Q4H PRN PRN Reason: Nausea/Vomiting Last Admin: 11/13/17 18:52 Dose: 4 mg Sodium Chloride (Saline Flush) 10 ml FLUSH ASDIRECTED PRN PRN Reason: Keep Vein Open Witch Svetlana (Tucks) 1 pad TOP ASDIRECTED PRN PRN Reason: Hemorrhoids Last Admin: 11/13/17 21:50 Dose: 1 pad Discontinued Medications Fentanyl (Sublimaze) 100 mcg IVPUSH Q1H [facility] Penicillin G Potassium 5 (millunits/ Sodium Chloride) 100 mls @ 200 mls/hr IV ONETIME ONE Stop: 11/13/17 12:59 Last Admin: 11/13/17 12:30 Dose: 200 mls/hr Penicillin G Potassium 2.5 (millunits/ Sodium Chloride) 50 mls @ 100 mls/hr IV Q4H [facility] Last Admin: 11/14/17 05:32 Dose: Not Given Lactated Ringer's (Ringers, Lactated) 1,000 mls @ 999 mls/hr IV BOLUS ONE Stop: 11/13/17 18:00 Last Admin: 11/13/17 19:30 Dose: 25 mls/hr Lidocaine HCl (Xylocaine 1%) Confirm Administered Dose 100 ml .ROUTE .STK-MED ONE Stop: 11/13/17 19:24 Last Admin: 11/13/17 21:42 Dose: 100 ml Misoprostol (Cytotec) 50 mcg VAG ONETIME ONE Stop: 11/13/17 11:58 Last Admin: 11/13/17 12:00 Dose: 50 mcg - Infant Interaction Disposition, : [place] in Room with Family Infant Interaction: Holding Infant Feeding: Attempted ; Nursed Fair/Poor Support Person: - Recovery Exam Fundal Tone: Firm Fundal Level: At Umbilicus Fundal Placement: Midline Lochia Amount: Small Lochia Color: Rubra/Red Perineum Description: Intact, Minimal Bruising/Swelling Episiotomy/Laceration: Approximated Bladder Status: Voiding Urinary Elimination: Voided - Exam General: Alert, Oriented HEENT: Pupils Equal Neck: Supple Lungs: Clear to Auscultation, Normal Respiratory Effort Cardiovascular: Regular Rate, Regular Rhythm GI/Abdominal Exam: Normal Bowel Sounds, Soft, Non-Tender, No Organomegaly, No Distention, No Abnormal Bruit, No Mass, Pelvis Stable Extremities: Normal Inspection, Normal Range of Motion, Non-Tender, No Pedal Edema, Normal Capillary Refill Skin: Warm, Dry, Intact Wound/Incisions: Healing Well Neurological: No New Focal Deficit Psy/Mental Status: Alert, Normal Affect, Normal Mood - Problem List & Annotations (1) Normal vaginal delivery SNOMED Code(s): 51636618 Code(s): O80 - ENCOUNTER FOR FULL-TERM UNCOMPLICATED DELIVERY Status: Acute Current Visit: Yes (2) GBS carrier SNOMED Code(s): 5282132838088 Code(s): Z22.330 - CARRIER OF GROUP B STREPTOCOCCUS Status: Acute Current Visit: Yes (3) () SNOMED Code(s): 159101704 Code(s): Z78.9 - OTHER SPECIFIED HEALTH STATUS Status: Acute Current Visit: Yes (4) SNOMED Code(s): 45734122 Code(s): Z34.90 - ENCNTR FOR SUPRVSN OF NORMAL , UNSP, UNSP TRIMESTER Status: Acute Current Visit: Yes Qualifiers: Weeks of gestation: 39 weeks Qualified Code(s): Z3A.39 - 39 weeks gestation of - Problem List Review Problem List Initiated/Reviewed/Updated: Yes - Assessment Assessment:: 11/13/17 21 year old 39 1/7 with tight nuchal cord and hand by face. Small first degree tear with repair female . 11/14/17 Happy feeling good bottom not sore, small repair bresastfeeding no latch voiding and flow is light HGB 12.5 11/15/2017 day two still fair/poor Fundus firm and bleeding decreasing Voiding and passing gas - Plan Plan:: 11/13/17 39 03/04 week IUP who is darell CE augment contractions with Miso vaginally monitor for active labor Plan for vaginal delivery Pain medication per patient request. 11/13/17 Routine cares support 48 hour stay due to positive GSB status cbc in am 11/14/17 continue routine cares lots of work the next two days home Sunday morning See me the first week of Dec for a post visit 11/15/2017 Continue routine cares Continue to support and encourage Discharge home tomorrow due to GBS positive
[2017-11-15] MEDS: Docusate Sodium 100 MG Cap PO PRN (21:30)
--- NOTE | 2017-11-16 08:19 | PCM.PNPP ---
- General Info Date of Service: 11/16/17 ( Day Two) Functional Status: Reports: Pain Controlled - Review of Systems General: Reports: No Symptoms HEENT: Reports: No Symptoms Pulmonary: Reports: No Symptoms Cardiovascular: Reports: No Symptoms Gastrointestinal: Reports: No Symptoms Genitourinary: Reports: No Symptoms Musculoskeletal: Reports: No Symptoms Skin: Reports: No Symptoms Neurological: Reports: No Symptoms Psychiatric: Reports: No Symptoms - General Info Date of Service: 11/16/17 - Patient Data Vital Signs - Most Recent: Last Vital Signs Temp 36.8 C 11/16/17 03:25 Pulse 68 11/16/17 03:25 Resp 16 11/16/17 03:25 BP 108/63 11/16/17 03:25 Pulse Ox 97 11/16/17 03:25 Weight - Most Recent: 88.451 kg I&O - Last 24 Hours: Intake & Output 11/15/17 11/16/17 11/16/17 22:59 06:59 14:59 Intake Total 500 400 Balance 500 400 Lab Results - Last 24 Hours: Laboratory Results - last 24 hr 11/15/17 Range/Units 08:24 WBC 16.1 H (4.5-11.0) K/uL RBC 4.63 (3.30-5.50) M/uL Hgb 11.8 L (12.0-15.0) g/dL Hct 37.4 (36.0-48.0) % MCV 81 (80-98) fL MCH 26 L (27-31) pg MCHC 32 (32-36) % Plt Count 391 (150-400) K/uL Neut % (Auto) 66 (36-66) % Lymph % (Auto) 25 (24-44) % [place] % (Auto) 7 H (2-6) % Eos % (Auto) 2 (2-4) % Baso % (Auto) 0 (0-1) % Med Orders - Current: Current Medications Acetaminophen (Tylenol) 650 mg PO Q4H PRN PRN Reason: mild pain and fever Acetaminophen (Tylenol Bulk Bottle) 325 - 650 mg PO Q4H PRN PRN Reason: Pain Last Admin: 11/13/17 22:07 Dose: 650 mg Acetaminophen/Codeine Phosphate (Tylenol With Codeine No.3 300mg/30mg) 1 tab PO Q6H PRN PRN Reason: Abdominal Pain Benzocaine (Bvxn-T-Cyknnom 20% [place]) 0 gm TOP Q4H PRN PRN Reason: Perineal Comfort Measure Last Admin: 11/13/17 21:49 Dose: 1 spray Docusate Sodium (Colace) 100 mg PO BID PRN PRN Reason: Constipation Last Admin: 11/15/17 21:30 Dose: 100 mg Emollient Ointment (Lansinoh Hpa) 0 gm TOP ASDIRECTED PRN PRN Reason: Sore Nipples Fentanyl (Sublimaze) 100 mcg IVPUSH Q1H PRN PRN Reason: Pain (severe 7-10) Last Admin: 11/13/17 18:51 Dose: 100 mcg Oxytocin/Sodium Chloride (Pitocin In Ns 20 Units/1,000 Ml) 20 unit in 1,000 mls @ 999 mls/hr IV ASDIRECTED [facility]; Protocol Last Admin: 11/13/17 20:37 Dose: 999 mls/hr, 999 mls/hr Ibuprofen (Motrin Bulk Bottle) 600 mg PO Q6H PRN PRN Reason: Pain Last Admin: 11/13/17 21:50 Dose: 600 mg Ondansetron HCl (Zofran Odt) 4 mg PO Q4H PRN PRN Reason: Nausea/Vomiting Last Admin: 11/13/17 18:52 Dose: 4 mg Sodium Chloride (Saline Flush) 10 ml FLUSH ASDIRECTED PRN PRN Reason: Keep Vein Open Witch Svetlana (Tucks) 1 pad TOP ASDIRECTED PRN PRN Reason: Hemorrhoids Last Admin: 11/13/17 21:50 Dose: 1 pad Discontinued Medications Fentanyl (Sublimaze) 100 mcg IVPUSH Q1H [facility] Penicillin G Potassium 5 (millunits/ Sodium Chloride) 100 mls @ 200 mls/hr IV ONETIME ONE Stop: 11/13/17 12:59 Last Admin: 11/13/17 12:30 Dose: 200 mls/hr Penicillin G Potassium 2.5 (millunits/ Sodium Chloride) 50 mls @ 100 mls/hr IV Q4H [facility] Last Admin: 11/14/17 05:32 Dose: Not Given Lactated Ringer's (Ringers, Lactated) 1,000 mls @ 999 mls/hr IV BOLUS ONE Stop: 11/13/17 18:00 Last Admin: 11/13/17 19:30 Dose: 25 mls/hr Lidocaine HCl (Xylocaine 1%) Confirm Administered Dose 100 ml .ROUTE .STK-MED ONE Stop: 11/13/17 19:24 Last Admin: 11/13/17 21:42 Dose: 100 ml Misoprostol (Cytotec) 50 mcg VAG ONETIME ONE Stop: 11/13/17 11:58 Last Admin: 11/13/17 12:00 Dose: 50 mcg - Interaction Infant Disposition, : in Room with Family Infant Interaction: Holding Feeding: Attempted ; Nursed Fair/Poor Support Person: - Recovery Exam Fundal Tone: Firm Fundal Level: 2 Fingerbreadths Below Umbilicus Fundal Placement: Midline Lochia Amount: Small Lochia Color: Rubra/Red Perineum Description: Intact, Minimal Bruising/Swelling Episiotomy/Laceration: Approximated Bladder Status: Voiding Urinary Elimination: Voided - Exam General: Alert, Oriented HEENT: Pupils Equal Neck: Supple Lungs: Clear to Auscultation, Normal Respiratory Effort Cardiovascular: Regular Rate, Regular Rhythm GI/Abdominal Exam: Normal Bowel Sounds, Soft, Non-Tender, No Organomegaly, No Distention, No Abnormal Bruit, No Mass, Pelvis Stable Extremities: Normal Inspection, Normal Range of Motion, Non-Tender, No Pedal Edema, Normal Capillary Refill Skin: Warm, Dry, Intact Wound/Incisions: Healing Well Neurological: No New Focal Deficit Psy/Mental Status: Alert, Normal Affect, Normal Mood - Problem List & Annotations (1) Normal vaginal delivery SNOMED Code(s): 68802611 Code(s): O80 - ENCOUNTER FOR FULL-TERM UNCOMPLICATED DELIVERY Status: Acute Current Visit: Yes (2) GBS carrier SNOMED Code(s): 2024381221161 Code(s): Z22.330 - CARRIER OF GROUP B STREPTOCOCCUS Status: Acute Current Visit: Yes (3) () SNOMED Code(s): 493425147 Code(s): Z78.9 - OTHER SPECIFIED HEALTH STATUS Status: Acute Current Visit: Yes (4) SNOMED Code(s): 10757098 Code(s): Z34.90 - ENCNTR FOR SUPRVSN OF NORMAL , UNSP, UNSP TRIMESTER Status: Acute Current Visit: Yes Qualifiers: Weeks of gestation: 39 weeks Qualified Code(s): Z3A.39 - 39 weeks gestation of - Problem List Review Problem List Initiated/Reviewed/Updated: Yes - Assessment Assessment:: 11/13/17 21 year old 39 1/7 with tight nuchal cord and hand by face. Small first degree tear with repair female . 11/14/17 Happy feeling good bottom not sore, small repair bresastfeeding no latch voiding and flow is light HGB 12.5 11/15/2017 day two still fair/poor Fundus firm and bleeding decreasing Voiding and passing gas 11/16/2017 day three better Fundus firm and bleeding decreasing Happy and wants to go home today - Plan Plan:: 11/13/17 39 1/7 week IUP who is darell CE / augment contractions with Miso vaginally monitor for active labor Plan for vaginal delivery Pain medication per patient request. 11/13/17 Routine cares support 48 hour stay due to positive GSB status cbc in am 11/14/17 continue routine cares lots of work the next two days home Sunday morning See me the first week of Nov for a post visit 11/15/2017 Continue routine cares Continue to support and encourage Discharge home tomorrow due to GBS positive 11/16/2017 Continue routine cares Continue to support and encourage Discharge home today due to GBS positive To see Phyllis in six weeks for visit
== END 2017-11-16 10:32 | disposition home or self-care (01) | DRG 775 ==
LOC: JP.OBCHECK 11:15 → JP.OB 12:00 → JP.MS 15:21 → JP.OB 15:22 → OBSVTOIN 20:36 → JP.MS 22:37
PROVIDERS: ADMIT Nurse Practitioner Family; ATTEND Nurse Practitioner Family
PROC: 10E0XZZ Delivery of Products of Conception, External Approach (ICD-10-PCS; principal; 2017-11-13)
PROC: 10907ZC Drainage of Amniotic Fluid, Therapeutic from Products of Conception, Via Natural or Artificial Opening (ICD-10-PCS; 2017-11-13)
PROC: 0HQ9XZZ Repair Perineum Skin, External Approach (ICD-10-PCS; 2017-11-13)
DX: O69.81X0 Labor and delivery complicated by cord around neck, without compression, not applicable or unspecified (principal); O32.6XX0 Maternal care for compound presentation, not applicable or unspecified; O99.824 Streptococcus B carrier state complicating childbirth; O70.0 First degree perineal laceration during delivery; Z3A.39 39 weeks gestation of pregnancy; Z37.0 Single live birth; Z91.048 Other nonmedicinal substance allergy status
CPT/HCPCS: 36415; 59409; 80305-QW; 81001; 85025; A9270-GY; J2540; J2590; J3010; J7030; J7050; J7120

== ENCOUNTER 2018-09-29 20:06 | Emergency (ER) | payer MEDICAID ==
[2018-09-29] MEDS ORDERED: Ketorolac 30 MG/ML SDV IVPUSH ONE (20:20)
--- NOTE | 2018-09-29 20:24 | EDM.PDOC ---
ED HPI GENERAL MEDICAL PROBLEM - General Chief Complaint: ENT Problem Stated Complaint: TONSIL ISSUES, BAD HEADACHE Time Seen by Provider: 09/29/18 20:09 Source of Information: Reports: Patient History Limitations: Reports: No Limitations - History of Present Illness INITIAL COMMENTS - FREE TEXT/NARRATIVE: has been sick since last Sunday Sore throat, headache, fever, weakness, lethargic Was seen in UC; told it is viral She thought she was improving however has started to feel dizzy and weak today She needs a work note for tomorrow. OTC: hasn't had anything today Onset: Gradual Duration: Day(s): (5) Severity: Moderate Throat Pain Score (Numeric/FACES): 6 - Related Data Allergies Allergy/AdvReac Type Severity Reaction Status Date / Time cat dander Allergy Other Verified 09/29/18 20:20 Home Meds: Home Meds NK [No Known Home Meds] 09/29/18 [History] Past Medical History - Past Health History Medical/Surgical History: Denies Medical/Surgical History Social & Family History - Family History HEENT: Reports: None Cardiac: Reports: CAD Respiratory: Reports: Asthma Musculoskeletal: Reports: Fibromyalgia - Caffeine Use Caffeine Use: Reports: Soda, Tea ED ROS GENERAL - Review of Systems Review Of Systems: See Below Constitutional: Reports: Fever, Weakness HEENT: Reports: Throat Pain Respiratory: Reports: No Symptoms Cardiovascular: Reports: No Symptoms Endocrine: Reports: Fatigue GI/Abdominal: Reports: No Symptoms : Reports: Urinary Retention Skin: Reports: No Symptoms Neurological: Reports: Headache Psychiatric: Reports: No Symptoms ED EXAM, GENERAL - Physical Exam Exam: See Below Exam Limited By: No Limitations General Appearance: Alert, WD/WN, No Apparent Distress Ears: Normal External Exam Throat/Mouth: Normal Inspection, Normal Oropharynx, Inflammation, Other (no exudate) Head: Atraumatic, Normocephalic Respiratory/Chest: No Respiratory Distress, Lungs Clear, Normal Breath Sounds Cardiovascular: Regular Rate, Rhythm Neurological: Alert, Oriented, CN II-XII Intact, Normal Cognition, Normal Gait Psychiatric: Normal Affect, Normal Mood Skin Exam: Warm, Dry, Intact Course - Vital Signs Last Recorded V/S: Last Vital Signs Temp 99.1 F 09/29/18 20:21 Pulse 123 H 09/29/18 20:21 Resp 18 09/29/18 20:21 BP 134/78 09/29/18 20:21 Pulse Ox 95 09/29/18 20:21 - Orders/Labs/Meds Orders: Active Orders 24 hr Category Date Time Status CULTURE STREP A CONFIRMATION [] Stat Lab 09/29/18 20:24 Results STREP SCRN A RAPID W CULT CONF [] Stat Lab 09/29/18 20:24 Results Sodium Chloride 0.9% [Normal Saline] 1,000 ml Med 09/29/18 20:30 Stop Req IV ASDIRECTED Medication Orders Sodium Chloride (Normal Saline) 1,000 mls @ 500 mls/hr IV ASDIRECTED CALIXTO Last Admin: 09/29/18 20:34 Dose: 500 mls/hr Meds: Medications Generic Name Dose Route Start Last Admin Trade Name Freq PRN Reason Stop Dose Admin Sodium Chloride 1,000 mls @ 500 mls/hr 09/29/18 20:30 09/29/18 20:34 Normal Saline IV 500 mls/hr ASDIRECTED [place] Administration Discontinued Medications Generic Name Dose Route Start Last Admin Trade Name Freq PRN Reason Stop Dose Admin Ketorolac Tromethamine 30 mg 09/29/18 20:20 09/29/18 20:34 Toradol IVPUSH 09/29/18 20:21 30 mg ONETIME ONE Administration - Re-Assessments/Exams Free Text/Narrative Re-Assessment/Exam: 09/29/18 20:42 reviewed strep swab with patient She is resting comfortably. 09/29/18 21:41 Received 500 ml of NS and toradol Will discharge to home. Departure - Departure Time of Disposition: 21:43 Disposition: Home, Self-Care 01 Condition: Good Clinical Impression: Tonsillitis - Discharge Information *PRESCRIPTION DRUG MONITORING PROGRAM REVIEWED*: Not Applicable *COPY OF PRESCRIPTION DRUG MONITORING REPORT IN PATIENT RACHELE: Not Applicable Instructions: Tonsillitis, [id number] Referrals: PCP,None [Primary Care Provider] - Forms: ED Department Discharge Additional Instructions: Keep hydration Tylenol and ibuprofen for pain Continue with decongestant Rest Follow up with your doctor Return with concerns. - Problem List & Annotations (1) Tonsillitis SNOMED Code(s): 65849499 Code(s): J03.90 - ACUTE TONSILLITIS, UNSPECIFIED Status: Acute Priority: Low Current Visit: Yes - My Orders Last 24 Hours: My Active Orders 09/29/18 20:24 CULTURE STREP A CONFIRMATION [RM] Stat STREP SCRN A RAPID W CULT CONF [RM] Stat 09/29/18 20:30 Sodium Chloride 0.9% [Normal Saline] 1,000 ml IV ASDIRECTED - Assessment/Plan Last 24 Hours: My Active Orders 09/29/18 20:24 CULTURE STREP A CONFIRMATION [RM] Stat STREP SCRN A RAPID W CULT CONF [RM] Stat 09/29/18 20:30 Sodium Chloride 0.9% [Normal Saline] 1,000 ml IV ASDIRECTED
[2018-09-29] MEDS ORDERED: Sodium Chloride 0.9% 1,000 ML IV SCH (20:30)
== END 2018-09-29 21:45 | disposition home or self-care (01) ==
LOC: JP.ED 20:06
DX: J03.90 Acute tonsillitis, unspecified (principal); Z91.048 Other nonmedicinal substance allergy status
CPT/HCPCS: 87081; 87880; 96361; 96374; 99283; J1885; J7030

== ENCOUNTER 2019-07-21 03:07 | Emergency (ER) | payer MEDICAID ==
--- NOTE | 2019-07-21 03:29 | EDM.PDOC ---
ED HPI GENERAL MEDICAL PROBLEM - General Chief Complaint: Abdominal Pain Stated Complaint: CRAMPING,ABD PAIN Time Seen by Provider: 07/21/19 03:23 Source of Information: Reports: Patient History Limitations: Reports: No Limitations - History of Present Illness INITIAL COMMENTS - FREE TEXT/NARRATIVE: patient presents patient presents tonight for evaluation of pelvic pain and vaginal bleeding and concern for position of her IUD. The IUD has been in place for approximately 6 months and through much of that time the patient has had spotting and varying duration of bleeding following her menstrual cycle. She was incompletely convinced about getting the IUD initially and is now having more and more fears especially since symptoms today. She last had intercourse 24 hours ago but did not feel anything different at that time. She is able to feel the string from the IUD and is not certain if it is any shorter or longer than normal. When her pain developed tonight she became very very concerned that something was definitely wrong with the IUD position and came in. 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 Denies: Frequency, Hematuria Neurological: Reports: No Symptoms Psychiatric: Reports: Anxiety ED EXAM, GI/ABD - Physical Exam Exam: See Below Text/Narrative:: Bernice adult female in room 11 who is an extensive historian and who seems very anxious about her situation. Exam Limited By: No Limitations General Appearance: Alert, Anxious, Moderate Distress Respiratory/Chest: No Respiratory Distress Cardiovascular: Regular Rate, Rhythm GI/Abdominal Exam: Tender (Low central abdominal tenderness) Course - Vital Signs Last Recorded V/S: Last Vital Signs Temp 35.7 C L 07/21/19 03:19 Pulse 91 07/21/19 03:19 Resp 14 07/21/19 03:19 BP 123/87 07/21/19 03:19 Pulse Ox 97 07/21/19 03:19 - Orders/Labs/Meds Orders: Active Orders 24 hr Category Date Time Status Abdomen 1V Flat [CR] Stat Exams 07/21/19 03:45 Ordered - Re-Assessments/Exams Free Text/Narrative Re-Assessment/Exam: 07/21/19 03:53 I discussed options for evaluation tonight. We do not have ultrasound available until morning hours. Flat abdominal x-ray could help to reassure for position. I asked if she just wanted the IUD removed out right and she is still contemplating whether that is appropriate are not? We'll start with the abdominal x-ray and review findings once that is completed. She may opt to follow-up with Charline Helton who had placed the device initially. 07/21/19 04:35 I reviewed the x-ray of the abdomen which shows her intrauterine device in the abdominal midline and where I would roughly expected to be if it was still in its appropriate position. The patient seems reassured by this image. He discussed use of ibuprofen 800 mg regularly for the next several days to improve comfort. She will follow up in clinic to discuss the IUD further. Reasons to return to emergency department reviewed. Departure - Departure Time of Disposition: 04:32 Disposition: Home, Self-Care 01 Condition: Good Clinical Impression: Pelvic pain, IUD (intrauterine device) in place - Discharge Information Referrals: Coby Tyler RN [Primary Care Provider] - Forms: ED Department Discharge Additional Instructions: Use ibuprofen 800 mg 3 times a day regularly over the next couple of days to improve comfort. Follow up in clinic to discuss the IUD further. Sepsis Event Note - Evaluation Sepsis Screening Result: No Definite Risk - Focused Exam Vital Signs: Vital Signs Temp Pulse Resp BP Pulse Ox 07/21/19 03:19 35.7 C L 91 14 123/87 97 Date Exam was Performed: 07/21/19 Time Exam was Performed: 04:37 - My Orders Last 24 Hours: My Active Orders 07/21/19 03:45 Abdomen 1V Flat [CR] Stat - Assessment/Plan Last 24 Hours: My Active Orders 07/21/19 03:45 Abdomen 1V Flat [CR] Stat
--- NOTE | 2019-07-22 10:02 | CR ---
Abdomen 1V Flat CLINICAL HISTORY: Position of IUD FINDINGS: The bowel gas pattern is nonobstructive. No abnormal masses are noted. There is some fecal retention. There is an IUD in the mid pelvis IMPRESSION: Fecal retention IUD in the mid pelvis
== END 2019-07-21 04:43 | disposition home or self-care (01) ==
LOC: JP.ED 03:07
DX: R10.2 Pelvic and perineal pain (principal); Z91.048 Other nonmedicinal substance allergy status
CPT/HCPCS: 74018; 74018-26; 99284-25

== ENCOUNTER 2020-06-30 06:57 | Inpatient (IN) | payer MEDICAID ==
[2020-06-30] MEDS ORDERED: Misoprostol 50 MCG (1/2 of 100 MCG) Tab VAG ONE (07:15)
[2020-06-30] MEDS ORDERED: Sodium Chloride 0.9% 10 ML Syringe FLUSH PRN (08:16)
--- NOTE | 2020-06-30 08:27 | PCM.LDHP ---
L&D History of Present Illness - General Date of Service: 06/30/20 (planned induction at term) Admit Problem/Dx: Patient Status Order with Admit Dx/Problem 06/30/20 08:16 Patient Status [ADT] Routine Admission Diagnosis/Problem Admission Diagnosis/Problem Source of Information: Patient History Limitations: Reports: No Limitations - History of Present Illness Introduction:: this 24 year old who is 39 2/7 weeks presents for induction of labor. Adequate care, healthy lady. Has a ripe cervix and wants to be done. Ultrasound puts baby at 50 % for clinical age. 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 Para: 1 LMP (Approximate): (BAYRON 07/06/20) Social & Family History - Family History Family Medical History: No Pertinent Family History HEENT: Reports: None Cardiac: Reports: CAD Respiratory: Reports: Asthma Musculoskeletal: Reports: Fibromyalgia - Tobacco Use Tobacco Use Status *Q: Never Tobacco User Second Hand Smoke Exposure: No - Caffeine Use Caffeine Use: Reports: Coffee - Recreational Drug Use Recreational Drug Use: No H&P Review of Systems - Review of Systems: Review Of Systems: See Below General: Reports: No Symptoms HEENT: Reports: No Symptoms Pulmonary: Reports: No Symptoms Cardiovascular: Reports: No Symptoms Gastrointestinal: Reports: No Symptoms Genitourinary: Reports: No Symptoms Musculoskeletal: Reports: No Symptoms Skin: Reports: No Symptoms Psychiatric: Reports: No Symptoms Neurological: Reports: No Symptoms Hematologic/Lymphatic: Reports: No Symptoms Immunologic: Reports: No Symptoms L&D Exam - Exam Exam: See Below - Vital Signs Vital Signs: Last Vital Signs Temp 98 F 06/30/20 07:35 Pulse 112 H 06/30/20 07:35 Resp 16 06/30/20 07:35 BP 117/74 06/30/20 07:35 Pulse Ox 95 06/30/20 07:35 Weight: 189 lb - OB Specific Contraction Duration (sec): 30-40 Contraction Frequency (min): 2-3 Contraction Intensity: Mild Movement: Active Heart Tones: Present Heart Tones per Min: 150 Heart Rate (FHR) Variability: Moderate (6-25 bmp) Presentation: Vertex Estimated Weight: 7 pounds - Cade Score Cade Score Cervix Position: Anterior Cade Score Consistency: Soft Cade Score Effacement: 51-70% Cade Score Dilation: 3-4 cm Cade Score 's Station: -1 ,0 Cade Score Total: 10 - Exam General: Alert, Oriented HEENT: PERRLA Neck: Supple Lungs: Normal Respiratory Effort Cardiovascular: Regular Rate GI/Abdominal Exam: Soft Rectal Exam: Normal Exam Genitourinary: Normal external exam, Enlarged uterus Back Exam: Normal Inspection Extremities: No Pedal Edema, Normal Capillary Refill Skin: Warm, Dry, Intact Neurological: Cranial Nerves Intact Psychiatric: Alert, Normal Affect, Normal Mood - Patient Data Lab Results Last 24 hrs: Laboratory Results - last 24 hr 06/30/20 06/30/20 06/30/20 Range/Units 07:07 07:07 07:25 WBC 12.9 H (4.5-11.0) K/uL RBC 4.84 (3.30-5.50) M/uL Hgb 12.1 (12.0-15.0) g/dL Hct 39.0 (36.0-48.0) % MCV 81 (80-98) fL MCH 25 L (27-31) pg MCHC 31 L (32-36) % Plt Count 412 H (150-400) K/uL Neut % (Auto) 60 (36-66) % Lymph % (Auto) 31 (24-44) % [place] % (Auto) 7 H (2-6) % Eos % (Auto) 3 (2-4) % Baso % (Auto) 0 (0-1) % Urine Color Yellow (YELLOW) Urine Appearance Clear (CLEAR) Urine pH 7.0 (5.0-8.0) Ur Specific [place] 1.020 (1.008-1.030) Urine Protein Negative (NEGATIVE) mg/dL Urine Glucose (UA) Negative (NEGATIVE) mg/dL Urine Ketones Negative (NEGATIVE) mg/dL Urine Occult Blood Negative (NEGATIVE) Urine Nitrite Negative (NEGATIVE) Urine Bilirubin Negative (NEGATIVE) Urine Urobilinogen 0.2 (0.2-1.0) EU/dL Ur Leukocyte Esterase Trace H (NEGATIVE) Urine RBC 0-5 (0-5) Urine WBC 0-5 (0-5) Ur Epithelial Cells Few Amorphous Sediment Not seen Urine Bacteria Not seen Urine Mucus Not seen Urine Opiates Screen Negative (NEGATIVE) Ur Oxycodone Screen Negative (NEGATIVE) Urine Methadone Screen Negative (NEGATIVE) Ur Propoxyphene Screen Negative (NEGATIVE) Ur Barbiturates Screen Negative (NEGATIVE) Ur Tricyclics Screen Negative (NEGATIVE) Ur Phencyclidine Scrn Negative (NEGATIVE) Ur Amphetamine Screen Negative (NEGATIVE) U Methamphetamines Scrn Negative (NEGATIVE) Urine MDMA Screen Negative (NEGATIVE) U Benzodiazepines Scrn Negative (NEGATIVE) U Cocaine Metab Screen Negative (NEGATIVE) U Marijuana (THC) Screen Negative (NEGATIVE) Result Diagrams: 06/30/20 07:25 - Problem List (1) Encounter for planned induction of labor SNOMED Code(s): 027361683 ICD Code: Z34.90 - ENCNTR FOR SUPRVSN OF NORMAL , UNSP, UNSP TRIMESTER Status: Acute Current Visit: Yes (2) SNOMED Code(s): 49016204 ICD Code: Z34.90 - ENCNTR FOR SUPRVSN OF NORMAL , UNSP, UNSP TRIMESTER Status: Acute Current Visit: Yes Qualifiers: Weeks of gestation: 39 weeks Qualified Code(s): Z3A.39 - 39 weeks gestation of (3) GBS carrier SNOMED Code(s): 2785288859254 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 STREPTOCOCCUS Status: Acute Current Visit: Yes Problem List Initiated/Reviewed/Updated: Yes Orders Last 24hrs: Active Orders 24 hr Category Date Time Status Patient Status [ADT] Routine ADT 06/30/20 08:16 Ordered Antiembolic Devices [RC] .Routine Care 06/30/20 08:18 Ordered Communication Order [RC] ASDIRECTED Care 06/30/20 08:16 Ordered Communication Order [RC] ASDIRECTED Care 06/30/20 08:16 Ordered Communication Order [RC] ASDIRECTED Care 06/30/20 08:16 Ordered Communication Order [RC] ASDIRECTED Care 06/30/20 08:16 Ordered Communication Order [RC] Per Unit Routine Care 06/30/20 08:20 Ordered Communication Order [RC] Per Unit Routine Care 06/30/20 08:20 Ordered Communication Order [RC] Per Unit Routine Care 06/30/20 08:20 Ordered Heart Tones [RC] INTERMITTENT Care 06/30/20 08:18 Ordered Nitrous Oxide Delivery [RC] ASDIRECTED Care 06/30/20 08:20 Ordered Notify Provider [RC] PRN Care 06/30/20 08:16 Ordered Notify Provider [RC] PRN Care 06/30/20 08:16 Ordered Notify Provider [RC] STAT Care 06/30/20 08:16 Ordered Oxygen Therapy [RC] ASDIRECTED Care 06/30/20 08:20 Ordered Peripheral IV Care [RC] . DIRECTED Care 06/30/20 08:18 Ordered Pulse Oximetry [RC] ASDIRECTED Care 06/30/20 08:20 Ordered Up ad Rut [RC] ASDIRECTED Care 06/30/20 08:16 Ordered VTE/DVT Education [RC] Click to Edit Care 06/30/20 08:18 Ordered Verify Patient Consent Obtain [RC] ASDIRECTED Care 06/30/20 08:20 Ordered Vital Signs [RC] PER UNIT ROUTINE Care 06/30/20 08:16 Ordered Vital Signs [RC] PER UNIT ROUTINE Care 06/30/20 08:16 Ordered Vital Signs [RC] PER UNIT ROUTINE Care 06/30/20 08:20 Ordered Regular Diet [DIET] Diet 06/30/20 Dinner Ordered CORONAVIRUS COVID-19 RAPID [MOLEC] Stat Lab 06/30/20 07:39 Received Oxytocin/Normal Saline [Pitocin in NS 20 Units/1,000 ML Med 06/30/20 08:20 Ordered ] 20 unit in 1,000 ml IV ONETIME Sodium Chloride 0.9% [Saline Flush] Med 06/30/20 08:16 Ordered 10 ml FLUSH ASDIRECTED PRN DVT/VTE Prophylaxis Reflex [OM.PC] Routine Oth 06/30/20 08:16 Ordered Nonstress Test [WOMSER] Routine Oth 06/30/20 08:16 Ordered Peripheral IV Insertion Adult [OM.PC] Routine Oth 06/30/20 08:16 Ordered Resuscitation Status Routine Resus Stat 06/30/20 08:16 Ordered Medication Orders Oxytocin/Sodium Chloride (Pitocin In Ns 20 Units/1,000 Ml) 20 unit in 1,000 mls @ 999 mls/hr IV ONETIME ONE; Protocol Stop: 06/30/20 09:20 Sodium Chloride (Sodium Chloride 0.9% 10 Ml Syringe) 10 ml FLUSH ASDIRECTED PRN PRN Reason: Keep Vein Open Assessment/Plan Comment:: 06/30/20 24 year old 39 2/7 weeks IUP, planned induction reactive NST, baseline FHT 150, cat one strip CE: 375/0 soft anterior Plan Miso 50 MCG vaginally placed at 0800 Monitor for active labor maybe up and about after initial one of monitoring reassess at noon, AROM if able Plan for vaginal delivery Treat GBS
[2020-06-30] MEDS ORDERED: Penicillin G Potassium 5 MILLUNITS in Sodium Chloride 0.9% 50 ML IV ONE (09:30)
[2020-06-30] MEDS ORDERED: Lidocaine 1% 50 ML MDV ONE (09:46)
[2020-06-30] MEDS ORDERED: Lactated Ringers 1,000 ML IV SCH (11:00)
--- NOTE | 2020-06-30 11:10 | PCM.PNLD ---
Labor Progress Note - VS & Meds Vital Signs: Last Vital Signs Temp 98 F 06/30/20 07:35 Pulse 85 06/30/20 08:50 Resp 16 06/30/20 08:50 BP 119/80 06/30/20 08:50 Pulse Ox 96 06/30/20 08:50 Active Medications: Current Medications Penicillin G Potassium 2.5 (millunits/ Sodium Chloride) 50 mls @ 100 mls/hr IV Q4H [place] Sodium Chloride (Sodium Chloride 0.9% 10 Ml Syringe) 10 ml FLUSH ASDIRECTED PRN PRN Reason: Keep Vein Open Discontinued Medications Oxytocin/Sodium Chloride (Pitocin In Ns 20 Units/1,000 Ml) 20 unit in 1,000 mls @ 999 mls/hr IV ONETIME ONE; Protocol Stop: 06/30/20 11:00 Penicillin G Potassium 5 (millunits/ Sodium Chloride) 50 mls @ 100 mls/hr IV ONETIME ONE Stop: 06/30/20 09:59 Last Admin: 06/30/20 09:57 Dose: 100 mls/hr Documented by: Lidocaine HCl (Lidocaine 1% 50 Ml Mdv) Confirm Administered Dose 50 ml .ROUTE .STK-MED ONE Stop: 06/30/20 09:47 Misoprostol (Misoprostol 50 Mcg (1/2 Of 100 Mcg) Tab) 50 mcg VAG ONETIME ONE Stop: 06/30/20 07:16 Last Admin: 06/30/20 08:00 Dose: 50 mcg Documented by: - Uterine Contractions Uterine Monitoring Mode: External [place] Contraction Frequency (min): 1.5-3 Contraction Duration (sec): 30-70 Contraction Intensity: Mild Uterine Resting Tone: Soft - Monitoring Monitor Mode: Doppler/Auscultation Heart Rate (FHR) Baseline: 150 Heart Rate (FHR) Variability: Moderate (6-25 bmp) Accelerations: Present, 15x15 Decelerations: Late Strip Review: Category II - Vaginal Exam Dilation (cm): 5 Effacement (Percent): 75 Station: 1 Cervical Position: Anterior Sterile Vaginal Exam Performed By: Phyllis Ge Vaginal Exam Comment: lates seen on monitor, cervical change since this morning - Labor Progress (Free Text) Labor Progress: tried AROM, bag against, head and head is low. Baseline fht 150 good viability blood show recheck after second dose of Antibiotics. Or sooner if needed.
[2020-06-30] MEDS ORDERED: Penicillin G Potassium 2.5 MILLUNITS in Sodium Chloride 0.9% 50 ML IV SCH (13:30)
--- NOTE | 2020-06-30 13:55 | PCM.PNLD ---
Labor Progress Note - VS & Meds Vital Signs: Last Vital Signs Temp 98.1 F 06/30/20 12:35 Pulse 72 06/30/20 12:35 Resp 20 06/30/20 12:35 BP 118/73 06/30/20 12:35 Pulse Ox 97 06/30/20 12:35 Active Medications: Current Medications Penicillin G Potassium 2.5 (millunits/ Sodium Chloride) 50 mls @ 100 mls/hr IV Q4H [place] Last Admin: 06/30/20 13:43 Dose: 100 mls/hr Documented by: Lactated Ringer's (Ringers, Lactated) 1,000 mls @ 100 mls/hr IV ASDIRECTED CALIXTO Last Infusion: 06/30/20 12:54 Dose: 25 mls/hr Documented by: Oxytocin/Sodium Chloride (Pitocin In Ns 20 Units/1,000 Ml) 20 unit in 1,000 mls @ 6 mls/hr IV TITRATE CALIXTO; Protocol Last Admin: 06/30/20 12:50 Dose: 1 munits/min, 3 mls/hr Documented by: Sodium Chloride (Sodium Chloride 0.9% 10 Ml Syringe) 10 ml FLUSH ASDIRECTED PRN PRN Reason: Keep Vein Open Discontinued Medications Oxytocin/Sodium Chloride (Pitocin In Ns 20 Units/1,000 Ml) 20 unit in 1,000 mls @ 999 mls/hr IV ONETIME ONE; Protocol Stop: 06/30/20 11:00 Penicillin G Potassium 5 (millunits/ Sodium Chloride) 50 mls @ 100 mls/hr IV ONETIME ONE Stop: 06/30/20 09:59 Last Admin: 06/30/20 09:57 Dose: 100 mls/hr Documented by: Lidocaine HCl (Lidocaine 1% 50 Ml Mdv) Confirm Administered Dose 50 ml .ROUTE .STK-MED ONE Stop: 06/30/20 09:47 Misoprostol (Misoprostol 50 Mcg (1/2 Of 100 Mcg) Tab) 50 mcg VAG ONETIME ONE Stop: 06/30/20 07:16 Last Admin: 06/30/20 08:00 Dose: 50 mcg Documented by: - Uterine Contractions Uterine Monitoring Mode: External [place] Contraction Frequency (min): 1-2.5 Contraction Duration (sec): 30-50 Contraction Intensity: Moderate Uterine Resting Tone: Soft - Monitoring Monitor Mode: Doppler/Auscultation Heart Rate (FHR) Baseline: 150 Heart Rate (FHR) Variability: Moderate (6-25 bmp) Accelerations: Present, 15x15 Decelerations: Late Strip Review: Category II - Vaginal Exam Dilation (cm): 6 Effacement (Percent): 80 Station: 1 Cervical Position: Anterior Sterile Vaginal Exam Performed By: Phyllis Ge Vaginal Exam Comment: AROM clear - Labor Progress (Free Text) Labor Progress: active labor
[2020-06-30] MEDS ORDERED: Hydrocortisone 2.5% Crm 30 GM Tube TOP PRN (15:58)
[2020-06-30] MEDS ORDERED: Benzocaine 20% Top Spray 56 GM Bottle TOP ONE (15:58)
[2020-06-30] MEDS ORDERED: Lanolin 100% Cream 40 GM Tube TOP ONE (15:58)
[2020-06-30] MEDS ORDERED: Witch Hazel Medicated Pads 100/Jar TOP ONE (15:58)
[2020-06-30] MEDS ORDERED: Witch Hazel Medicated Pads 100/Jar TOP PRN (16:10)
[2020-06-30] MEDS ORDERED: Benzocaine 20% Top Spray 56 GM Bottle TOP PRN (16:10)
[2020-06-30] MEDS ORDERED: Lanolin 100% Cream 40 GM Tube TOP PRN (16:11)
[2020-06-30] MEDS ORDERED: Ibuprofen 200 MG Tab, 24 Tab Bulk Bottle PO PRN (16:12)
[2020-06-30] MEDS ORDERED: Acetaminophen 325 MG Tab, 50 Tab Bulk Bottle PO PRN (16:12)
--- NOTE | 2020-06-30 16:21 | PCM.DEL ---
L & D Note - General Info Date of Service: [birth year] (birthday) Mother's Due Date: 07/06/20 - Delivery Note Labor: Spontaneous Cervical Ripening Method: Misoprostil Delivery Outcome: Livebirth Infant Delivery Method: Spontaneous Vaginal Delivery-Single Delivery Mode: Spontaneous Presentation: Vertex Nuchal Cord: Present, Reduced Anesthesia Type: None, Nitrous Oxide Amniotic Fluid Description: Clear Episiotomy Type: None Laceration: None Placenta: Intact, Spontaneous Cord: 3 Vessels Estimated Blood Loss: 100 Resuscitation Needed: No : Stimulated, Warmed, [place] Used Provider: Phyllis Ge Score 1 min: 9 Score 5 min: 9 Second Stage Interventions: Reports: Second Nurse Reviewed Heart Tones, Encouragement Given, Pushing, McRobert's Position, Pushing, Pulls Own Legs Back Delivery Comments (Free Text/Narrative):: 06/30/20 This 24 year old G2 now P2 who is 39 2/7 weeks delivered via at 1537 a v iable male infant over an intact perineum in [facility]. Mother had progressed quickly to complete and pushed well without medications. was placed on her chest after the cord was double clamped and cut to reduced a tight nuchal cord. He cried spontaneously and transitioned well on mother's chest. Active management of the third stage was employed. He was dried and stimulated Apgars of 9&9. Three vessel cord. The placenta was expressed spontaneously intact with one push. No lacerations of the cervix, vagina, perineum and rectum. EBL 100cc Mother and baby to post in stable condition. weight 7-10 first stage [id number] second stage 9203-4813 Third stage 9364-7175 Induction Criteria - Cade Score Cade Score Dilation: 3-4 cm Cade Score Effacement: 60-70% Cade Score 's Station: -1 ,0 Cade Score Consistency: Soft Cade Score Cervix Position: Anterior Cade Score Total: 10 Cade Score Presenting Part: Reports: Cephalic - Induction Gestational Age >/= 39 wks: Yes Estimated Pelvis: Reports: Adequate Reassuring Monitoring Strip: Yes Absence of Tachy Systole: Yes - Augmentation Estimated Pelvis: Reports: Adequate Weight Estimated:: Reports: AGA Reassuring Monitoring Strip: Yes Absence of Tachy Systole: Yes - General Info Date of Service: 06/30/20 Admission Dx/Problem (Free Text): Patient Status Order with Admit Dx/Problem 06/30/20 08:16 Patient Status [ADT] Routine Admission Diagnosis/Problem Admission Diagnosis/Problem Functional Status: Reports: Pain Controlled - Review of Systems General: Reports: No Symptoms HEENT: Reports: No Symptoms Pulmonary: Reports: No Symptoms Cardiovascular: Reports: No Symptoms Gastrointestinal: Reports: No Symptoms Genitourinary: Reports: No Symptoms Musculoskeletal: Reports: No Symptoms Skin: Reports: No Symptoms Neurological: Reports: No Symptoms Psychiatric: Reports: No Symptoms - Patient Data Vitals - Most Recent: Last Vital Signs Temp 98.1 F 06/30/20 12:35 Pulse 72 06/30/20 12:35 Resp 20 06/30/20 12:35 BP 118/73 06/30/20 12:35 Pulse Ox 97 06/30/20 12:35 Weight - Most Recent: 189 lb I&O - Last 24 Hours: Intake & Output 06/30/20 06/30/20 06/30/20 06:59 14:59 22:59 Intake Total 100 Balance 100 Lab Results Last 24 Hours: Laboratory Results - last 24 hr 06/30/20 06/30/20 06/30/20 Range/Units 07:07 07:07 07:25 WBC 12.9 H (4.5-11.0) K/uL RBC 4.84 (3.30-5.50) M/uL Hgb 12.1 (12.0-15.0) g/dL Hct 39.0 (36.0-48.0) % MCV 81 (80-98) fL MCH 25 L (27-31) pg MCHC 31 L (32-36) % Plt Count 412 H (150-400) K/uL Neut % (Auto) 60 (36-66) % Lymph % (Auto) 31 (24-44) % Young % (Auto) 7 H (2-6) % Eos % (Auto) 3 (2-4) % Baso % (Auto) 0 (0-1) % Urine Color Yellow (YELLOW) Urine Appearance Clear (CLEAR) Urine pH 7.0 (5.0-8.0) Ur Specific [place] 1.020 (1.008-1.030) Urine Protein Negative (NEGATIVE) mg/dL Urine Glucose (UA) Negative (NEGATIVE) mg/dL Urine Ketones Negative (NEGATIVE) mg/dL Urine Occult Blood Negative (NEGATIVE) Urine Nitrite Negative (NEGATIVE) Urine Bilirubin Negative (NEGATIVE) Urine Urobilinogen 0.2 (0.2-1.0) EU/dL Ur Leukocyte Esterase Trace H (NEGATIVE) Urine RBC 0-5 (0-5) Urine WBC 0-5 (0-5) Ur Epithelial Cells Few Amorphous Sediment Not seen Urine Bacteria Not seen Urine Mucus Not seen Urine Opiates Screen Negative (NEGATIVE) Ur Oxycodone Screen Negative (NEGATIVE) Urine Methadone Screen Negative (NEGATIVE) Ur Propoxyphene Screen Negative (NEGATIVE) Ur Barbiturates Screen Negative (NEGATIVE) Ur Tricyclics Screen Negative (NEGATIVE) Ur Phencyclidine Scrn Negative (NEGATIVE) Ur Amphetamine Screen Negative (NEGATIVE) U Methamphetamines Scrn Negative (NEGATIVE) Urine MDMA Screen Negative (NEGATIVE) U Benzodiazepines Scrn Negative (NEGATIVE) U Cocaine Metab Screen Negative (NEGATIVE) U Marijuana (THC) Screen Negative (NEGATIVE) SARS CoV-2 RNA Rapid GIANCARLO 06/30/20 Range/Units 07:39 WBC (4.5-11.0) K/uL RBC (3.30-5.50) M/uL Hgb (12.0-15.0) g/dL Hct (36.0-48.0) % MCV (80-98) fL MCH (27-31) pg MCHC (32-36) % Plt Count (150-400) K/uL Neut % (Auto) (36-66) % Lymph % (Auto) (24-44) % Young % (Auto) (2-6) % Eos % (Auto) (2-4) % Baso % (Auto) (0-1) % Urine Color (YELLOW) Urine Appearance (CLEAR) Urine pH (5.0-8.0) Ur Specific [place] (1.008-1.030) Urine Protein (NEGATIVE) mg/dL Urine Glucose (UA) (NEGATIVE) mg/dL Urine Ketones (NEGATIVE) mg/dL Urine Occult Blood (NEGATIVE) Urine Nitrite (NEGATIVE) Urine Bilirubin (NEGATIVE) Urine Urobilinogen (0.2-1.0) EU/dL Ur Leukocyte Esterase (NEGATIVE) Urine RBC (0-5) Urine WBC (0-5) Ur Epithelial Cells Amorphous Sediment Urine Bacteria Urine Mucus Urine Opiates Screen (NEGATIVE) Ur Oxycodone Screen (NEGATIVE) Urine Methadone Screen (NEGATIVE) Ur Propoxyphene Screen (NEGATIVE) Ur Barbiturates Screen (NEGATIVE) Ur Tricyclics Screen (NEGATIVE) Ur Phencyclidine Scrn (NEGATIVE) Ur Amphetamine Screen (NEGATIVE) U Methamphetamines Scrn (NEGATIVE) Urine MDMA Screen (NEGATIVE) U Benzodiazepines Scrn (NEGATIVE) U Cocaine Metab Screen (NEGATIVE) U Marijuana (THC) Screen (NEGATIVE) SARS CoV-2 RNA Rapid GIANCARLO Negative Med Orders - Current: Current Medications Benzocaine (Benzocaine 20% Top [place] 56 Gm Bottle) 0 gm TOP Q4H PRN PRN Reason: PAIN Emollient Ointment (Lanolin 100% Cream 40 Gm Tube) 1 gm TOP ASDIRECTED PRN PRN Reason: NIPPLE PAIN Hydrocortisone (Hydrocortisone 2.5% Crm 30 Gm Tube) 0 gm TOP ASDIRECTED PRN PRN Reason: Itching Lactated Ringer's (Ringers, Lactated) 1,000 mls @ 100 mls/hr IV ASDIRECTED CALIXTO Last Infusion: 06/30/20 12:54 Dose: 25 mls/hr Documented by: Oxytocin/Sodium Chloride (Pitocin In Ns 20 Units/1,000 Ml) 20 unit in 1,000 mls @ 6 mls/hr IV TITRATE CALIXTO; Protocol Last Titration: 06/30/20 14:00 Dose: 0 munits/min, 0 mls/hr Documented by: Sodium Chloride (Sodium Chloride 0.9% 10 Ml Syringe) 10 ml FLUSH ASDIRECTED PRN PRN Reason: Keep Vein Open Witch Svetlana (Witch Svetlana Medicated Pads 100/Jar) 1 pad TOP ASDIRECTED PRN PRN Reason: HEMHHOIDS Discontinued Medications Benzocaine (Benzocaine 20% Top [place] 56 Gm Bottle) 0 gm TOP Q4H ONE Stop: 06/30/20 15:59 Emollient Ointment (Lanolin 100% Cream 40 Gm Tube) 1 gm TOP ASDIRECTED ONE Stop: 06/30/20 15:59 Oxytocin/Sodium Chloride (Pitocin In Ns 20 Units/1,000 Ml) 20 unit in 1,000 mls @ 999 mls/hr IV ONETIME ONE; Protocol Stop: 06/30/20 11:00 Penicillin G Potassium 5 (millunits/ Sodium Chloride) 50 mls @ 100 mls/hr IV ONETIME ONE Stop: 06/30/20 09:59 Last Admin: 06/30/20 09:57 Dose: 100 mls/hr Documented by: Penicillin G Potassium 2.5 (millunits/ Sodium Chloride) 50 mls @ 100 mls/hr IV Q4H CALIXTO Last Admin: 06/30/20 13:43 Dose: 100 mls/hr Documented by: Lidocaine HCl (Lidocaine 1% 50 Ml Mdv) Confirm Administered Dose 50 ml .ROUTE .STK-MED ONE Stop: 06/30/20 09:47 Misoprostol (Misoprostol 50 Mcg (1/2 Of 100 Mcg) Tab) 50 mcg VAG ONETIME ONE Stop: 06/30/20 07:16 Last Admin: 06/30/20 08:00 Dose: 50 mcg Documented by: Melonie Mota (Melonie Mota Medicated Pads 100/Jar) 1 pad TOP ASDIRECTED ONE Stop: 06/30/20 15:59 - Exam General: Alert, Oriented HEENT: Pupils Equal, Pupils Reactive Neck: Supple Lungs: Clear to Auscultation, Normal Respiratory Effort Cardiovascular: Regular Rate, Regular Rhythm GI/Abdominal Exam: Normal Bowel Sounds, Soft, Non-Tender (Female) Exam: Normal External Exam, Enlarged Uterus, Vaginal Bleeding. No: Vaginal Tears Back Exam: Normal Inspection Extremities: No Pedal Edema, Normal Capillary Refill Skin: Warm, Dry Psy/Mental Status: Alert, Normal Affect, Normal Mood - Problem List & Annotations (1) Encounter for planned induction of labor SNOMED Code(s): 270582877 Code(s): Z34.90 - ENCNTR FOR SUPRVSN OF NORMAL , UNSP, UNSP TRIMESTER Status: Acute Current Visit: Yes (2) SNOMED Code(s): 35849661 Code(s): Z34.90 - ENCNTR FOR SUPRVSN OF NORMAL , UNSP, UNSP TRIMESTER Status: Acute Current Visit: Yes Qualifiers: Weeks of gestation: 39 weeks Qualified Code(s): Z3A.39 - 39 weeks gestation of (3) GBS carrier SNOMED Code(s): 9175781982324 Code(s): Z22.330 - CARRIER OF GROUP B STREPTOCOCCUS Status: Acute Current Visit: Yes (4) Active labor SNOMED Code(s): 423726545 Code(s): WIZ1673 - Status: Acute Current Visit: Yes (5) (infant) SNOMED Code(s): 283767325 Code(s): Z78.9 - OTHER SPECIFIED HEALTH STATUS Status: Acute Current Visit: Yes (6) Normal labor and delivery SNOMED Code(s): 52812925, 51098154 Code(s): O80 - ENCOUNTER FOR FULL-TERM UNCOMPLICATED DELIVERY Status: Acute Current Visit: Yes - Problem List Review Problem List Initiated/Reviewed/Updated: Yes - My Orders Last 24 Hours: My Active Orders 06/30/20 08:16 Communication Order [RC] ASDIRECTED Communication Order [RC] ASDIRECTED Communication Order [RC] ASDIRECTED Communication Order [RC] ASDIRECTED Notify Provider [RC] PRN Notify Provider [RC] PRN Notify Provider [RC] STAT Up ad Rut [RC] ASDIRECTED Vital Signs [RC] PER UNIT ROUTINE Vital Signs [RC] PER UNIT ROUTINE Sodium Chloride 0.9% [Saline Flush] 10 ml FLUSH ASDIRECTED PRN DVT/VTE Prophylaxis Reflex [OM.PC] Routine Nonstress Test [WOMSER] Routine Peripheral IV Insertion Adult [OM.PC] Routine Resuscitation Status Routine 06/30/20 08:18 Antiembolic Devices [RC] .Routine Heart Tones [RC] INTERMITTENT Peripheral IV Care [RC] . DIRECTED VTE/DVT Education [RC] Click to Edit 06/30/20 08:20 Communication Order [RC] Per Unit Routine Communication Order [RC] Per Unit Routine Communication Order [RC] Per Unit Routine Nitrous Oxide Delivery [RC] ASDIRECTED Oxygen Therapy [RC] ASDIRECTED Pulse Oximetry [RC] ASDIRECTED Verify Patient Consent Obtain [RC] ASDIRECTED Vital Signs [RC] PER UNIT ROUTINE 06/30/20 11:00 Lactated Ringers [Ringers, Lactated] 1,000 ml IV ASDIRECTED 06/30/20 13:00 Oxytocin/Normal Saline [Pitocin in NS 20 Units/1,000 ML] 20 unit in 1,000 ml IV TITRATE 06/30/20 15:58 Patient Status [ADT] Routine Vital Signs [RC] PFP Hydrocortisone [Proctozone-HC 2.5% Crm] 1 gm TOP ASDIRECTED PRN 06/30/20 16:10 Benzocaine [Wtmh-N-Jnhfrbo 20% [place]] 0 gm TOP Q4H PRN witch Svetlana [Tucks] 1 pad TOP ASDIRECTED PRN 06/30/20 16:11 Lanolin [Lansinoh HPA] 1 gm TOP ASDIRECTED PRN 06/30/20 16:12 Acetaminophen [Tylenol Bulk Bottle] See Dose Instructions PO Q4H PRN Ibuprofen [Motrin Bulk Bottle] 600 mg PO Q6H PRN 06/30/20 Dinner Regular Diet [DIET] 07/01/20 05:11 CBC W/O DIFF,HEMOGRAM [HEME] AM - Assessment Assessment:: 06/30/20 24 year old G2 now P2 39 2/7 weeks gestation, without complications male , - Plan Plan:: 06/30/20 24 year old 39 2/7 weeks IUP, planned induction reactive NST, baseline FHT 150, cat one strip CE: 375/0 soft anterior Plan Miso 50 MCG vaginally placed at 0800 Monitor for active labor maybe up and about after initial one of monitoring reassess at noon, AROM if able Plan for vaginal delivery Treat GBS 06/30/20 routine care GSB treated, 48 hour stay needs MMR booster support
[2020-07-01] MEDS ORDERED: Docusate Sodium 100 MG Cap PO PRN (08:20)
--- NOTE | 2020-07-01 08:24 | PCM.PNPP ---
- General Info Date of Service: 07/01/20 Functional Status: Reports: Pain Controlled - Review of Systems General: Reports: No Symptoms HEENT: Reports: No Symptoms Pulmonary: Reports: No Symptoms Cardiovascular: Reports: No Symptoms Gastrointestinal: Reports: No Symptoms Genitourinary: Reports: No Symptoms Musculoskeletal: Reports: No Symptoms Skin: Reports: No Symptoms Neurological: Reports: No Symptoms Psychiatric: Reports: No Symptoms - General Info Date of Service: 07/01/20 - Patient Data Vital Signs - Most Recent: Last Vital Signs Temp 35.9 C L 07/01/20 07:00 Pulse 94 07/01/20 07:00 Resp 16 07/01/20 07:00 BP 124/75 07/01/20 07:00 Pulse Ox 97 07/01/20 07:00 Weight - Most Recent: 85.729 kg I&O - Last 24 Hours: Intake & Output 06/30/20 07/01/20 07/01/20 22:59 06:59 14:59 Intake Total 2831 Balance 2831 Lab Results - Last 24 Hours: Laboratory Results - last 24 hr 06/30/20 07/01/20 Range/Units 07:39 05:49 WBC 20.8 H (4.5-11.0) K/uL RBC 4.38 (3.30-5.50) M/uL Hgb 10.9 L (12.0-15.0) g/dL Hct 35.2 L (36.0-48.0) % MCV 80 (80-98) fL MCH 25 L (27-31) pg MCHC 31 L (32-36) % Plt Count 378 (150-400) K/uL SARS CoV-2 RNA Rapid GIANCARLO Negative Med Orders - Current: Current Medications Acetaminophen (Acetaminophen 325 Mg Tab, 50 Tab Bulk Bottle) 325 - 650 mg PO Q4H PRN PRN Reason: Pain Last Admin: 06/30/20 17:15 Dose: 1 bottle Documented by: Benzocaine (Benzocaine 20% Top [place] 56 Gm Bottle) 0 gm TOP Q4H PRN PRN Reason: PAIN Docusate Sodium (Docusate Sodium 100 Mg Cap) 100 mg PO DAILY PRN PRN Reason: Constipation Emollient Ointment (Lanolin 100% Cream 40 Gm Tube) 1 gm TOP ASDIRECTED PRN PRN Reason: NIPPLE PAIN Hydrocortisone (Hydrocortisone 2.5% Crm 30 Gm Tube) 0 gm TOP ASDIRECTED PRN PRN Reason: Itching Lactated Ringer's (Ringers, Lactated) 1,000 mls @ 100 mls/hr IV ASDIRECTED CALIXTO Last Infusion: 06/30/20 12:54 Dose: 25 mls/hr Documented by: Oxytocin/Sodium Chloride (Pitocin In Ns 20 Units/1,000 Ml) 20 unit in 1,000 mls @ 6 mls/hr IV TITRATE CALIXTO; Protocol Last Titration: 06/30/20 15:45 Dose: 333 munits/min, 999 mls/hr Documented by: Ibuprofen (Ibuprofen 200 Mg Tab, 24 Tab Bulk Bottle) 600 mg PO Q6H PRN PRN Reason: Pain Last Admin: 06/30/20 17:14 Dose: 1 bottle Documented by: Measles/Mumps/Rubella Vaccine Live (Measles, Mumps & Rubella Vaccine 0.5 Ml Sdv) 0.5 ml SUBCUT .ONCE ONE Stop: 07/01/20 09:01 Sodium Chloride (Sodium Chloride 0.9% 10 Ml Syringe) 10 ml FLUSH ASDIRECTED PRN PRN Reason: Keep Vein Open Witch Svetlana (Witch Svetlana Medicated Pads 100/Jar) 1 pad TOP ASDIRECTED PRN PRN Reason: HEMHHOIDS Discontinued Medications Benzocaine (Benzocaine 20% Top [place] 56 Gm Bottle) 0 gm TOP Q4H ONE Stop: 06/30/20 15:59 Last Admin: 06/30/20 17:14 Dose: 1 bottle Documented by: Emollient Ointment (Lanolin 100% Cream 40 Gm Tube) 1 gm TOP ASDIRECTED ONE Stop: 06/30/20 15:59 Last Admin: 06/30/20 17:15 Dose: 1 bottle Documented by: Oxytocin/Sodium Chloride (Pitocin In Ns 20 Units/1,000 Ml) 20 unit in 1,000 mls @ 999 mls/hr IV ONETIME ONE; Protocol Stop: 06/30/20 11:00 Last Admin: 06/30/20 16:23 Dose: Not Given Documented by: Penicillin G Potassium 5 (millunits/ Sodium Chloride) 50 mls @ 100 mls/hr IV ONETIME ONE Stop: 06/30/20 09:59 Last Admin: 06/30/20 09:57 Dose: 100 mls/hr Documented by: Penicillin G Potassium 2.5 (millunits/ Sodium Chloride) 50 mls @ 100 mls/hr IV Q4H [place] Last Admin: 06/30/20 13:43 Dose: 100 mls/hr Documented by: Lidocaine HCl (Lidocaine 1% 50 Ml Mdv) Confirm Administered Dose 50 ml .ROUTE .STK-MED ONE Stop: 06/30/20 09:47 Last Admin: 06/30/20 16:23 Dose: Not Given Documented by: Misoprostol (Misoprostol 50 Mcg (1/2 Of 100 Mcg) Tab) 50 mcg VAG ONETIME ONE Stop: 06/30/20 07:16 Last Admin: 06/30/20 08:00 Dose: 50 mcg Documented by: Melonie Mota (Tench Svetlana Medicated Pads 100/Jar) 1 pad TOP ASDIRECTED ONE Stop: 06/30/20 15:59 Last Admin: 06/30/20 17:14 Dose: 1 bottle Documented by: - Infant Interaction Disposition, : [place] in Room with Family Interaction: Holding Infant Feeding: Breastfed Infant; Nursed Well Support Person: - Recovery Exam Fundal Tone: Firm Fundal Level: 1 Fingerbreadths Above Umbilicus Fundal Placement: Midline Lochia Amount: Small Lochia Color: Rubra/Red Perineum Description: Intact, Minimal Bruising/Swelling Episiotomy/Laceration: None Bladder Status: Voiding Urinary Elimination: Voided - Exam General: Alert, Oriented HEENT: Pupils Equal, Pupils Reactive, Mucous Membr. Moist/[place] Neck: Supple Lungs: Clear to Auscultation, Normal Respiratory Effort Cardiovascular: Regular Rate, Regular Rhythm GI/Abdominal Exam: Normal Bowel Sounds, Soft, Non-Tender, Pelvis Stable Extremities: Normal Inspection, Normal Range of Motion, Non-Tender, No Pedal Edema, Normal Capillary Refill Skin: Warm, Dry, Intact Neurological: No New Focal Deficit Psy/Mental Status: Alert, Normal Affect, Normal Mood - Problem List & Annotations (1) (infant) SNOMED Code(s): 443369343 Code(s): Z78.9 - OTHER SPECIFIED HEALTH STATUS Status: Acute Current Visit: Yes (2) Encounter for planned induction of labor SNOMED Code(s): 146243396 Code(s): Z34.90 - ENCNTR FOR SUPRVSN OF NORMAL , UNSP, UNSP TRIMESTER Status: Acute Current Visit: Yes (3) GBS carrier SNOMED Code(s): 1488754050646 Code(s): Z22.330 - CARRIER OF GROUP B STREPTOCOCCUS Status: Acute Current Visit: Yes (4) Normal labor and delivery SNOMED Code(s): 41015275, 87460647 Code(s): O80 - ENCOUNTER FOR FULL-TERM UNCOMPLICATED DELIVERY Status: Acute Current Visit: Yes - Problem List Review Problem List Initiated/Reviewed/Updated: Yes - My Orders Last 24 Hours: My Active Orders 07/01/20 08:20 Vaccines to be Administered [RC] PER UNIT ROUTINE Docusate Sodium [Colace] 100 mg PO DAILY PRN Measles, Mumps & Rubella [M-M-R II Vaccine] 0.5 ml SUBCUT .ONCE ONE 07/02/20 05:11 CBC WITH AUTO DIFF [HEME] AM 07/03/20 05:11 CBC WITH AUTO DIFF [HEME] AM - Assessment Assessment:: 06/30/20 24 year old G2 now P2 39 2/7 weeks gestation, without complications male infant, 07/01/20 PP day 1, no complications FF and bleeding light AVSS going very well Rubella non-immune WBC 20.8, hgb 10.9 - Plan Plan:: 06/30/20 24 year old 39 2/7 weeks IUP, planned induction reactive NST, baseline FHT 150, cat one strip CE: /0 soft anterior Plan Miso 50 MCG vaginally placed at 0800 Monitor for active labor maybe up and about after initial one of monitoring reassess at noon, AROM if able Plan for vaginal delivery Treat GBS 06/30/20 routine care GSB treated, 48 hour stay needs MMR booster support 07/01/20 Routine cares support CBC in am to recheck WBC MMR ordered Colace ordered for constipation Anticipate discharge home tomorrow
[2020-07-01] MEDS ORDERED: Measles, Mumps & Rubella Vaccine 0.5 ML SDV SUBCUT ONE (09:00)
[2020-07-01] MEDS ORDERED: Lactobacillus Rhamnosus GG (Probiotic) Cap PO SCH (16:30)
--- NOTE | 2020-07-02 07:55 | PCM.PNPP ---
- General Info Date of Service: 07/02/20 Functional Status: Reports: Pain Controlled - Review of Systems General: Reports: No Symptoms HEENT: Reports: No Symptoms Pulmonary: Reports: No Symptoms Cardiovascular: Reports: No Symptoms Gastrointestinal: Reports: No Symptoms Genitourinary: Reports: No Symptoms Musculoskeletal: Reports: No Symptoms Skin: Reports: No Symptoms Neurological: Reports: No Symptoms Psychiatric: Reports: No Symptoms - General Info Date of Service: 07/02/20 - Patient Data Vital Signs - Most Recent: Last Vital Signs Temp 35.6 C L 07/02/20 03:00 Pulse 80 07/02/20 03:00 Resp 18 07/02/20 03:00 BP 130/77 07/02/20 03:00 Pulse Ox 99 07/02/20 03:00 Weight - Most Recent: 85.729 kg Lab Results - Last 24 Hours: Laboratory Results - last 24 hr 07/02/20 Range/Units 04:49 WBC 12.5 H (4.5-11.0) K/uL RBC 4.43 (3.30-5.50) M/uL Hgb 11.0 L (12.0-15.0) g/dL Hct 36.0 (36.0-48.0) % MCV 81 (80-98) fL MCH 25 L (27-31) pg MCHC 31 L (32-36) % Plt Count 359 (150-400) K/uL Neut % (Auto) 68 H (36-66) % Lymph % (Auto) 26 (24-44) % Brooks % (Auto) 5 (2-6) % Eos % (Auto) 2 (2-4) % Baso % (Auto) 0 (0-1) % Med Orders - Current: Current Medications Acetaminophen (Acetaminophen 325 Mg Tab, 50 Tab Bulk Bottle) 325 - 650 mg PO Q4H PRN PRN Reason: Pain Last Admin: 06/30/20 17:15 Dose: 1 bottle Documented by: Benzocaine (Benzocaine 20% Top [place] 56 Gm Bottle) 0 gm TOP Q4H PRN PRN Reason: PAIN Docusate Sodium (Docusate Sodium 100 Mg Cap) 100 mg PO DAILY PRN PRN Reason: Constipation Last Admin: 07/01/20 10:30 Dose: 100 mg Documented by: Emollient Ointment (Lanolin 100% Cream 40 Gm Tube) 1 gm TOP ASDIRECTED PRN PRN Reason: NIPPLE PAIN Hydrocortisone (Hydrocortisone 2.5% Crm 30 Gm Tube) 0 gm TOP ASDIRECTED PRN PRN Reason: Itching Ibuprofen (Ibuprofen 200 Mg Tab, 24 Tab Bulk Bottle) 600 mg PO Q6H PRN PRN Reason: Pain Last Admin: 06/30/20 17:14 Dose: 1 bottle Documented by: Lactobacillus Rhamnosus (Lactobacillus Rhamnosus Gg (Probiotic) Cap) 1 cap PO DAILY [facility] Last Admin: 07/01/20 16:42 Dose: 1 cap Documented by: Sodium Chloride (Sodium Chloride 0.9% 10 Ml Syringe) 10 ml FLUSH ASDIRECTED PRN PRN Reason: Keep Vein Open Witch Svetlana (Witch Svetlana Medicated Pads 100/Jar) 1 pad TOP ASDIRECTED PRN PRN Reason: HEMHHOIDS Discontinued Medications Benzocaine (Benzocaine 20% Top [place] 56 Gm Bottle) 0 gm TOP Q4H ONE Stop: 06/30/20 15:59 Last Admin: 06/30/20 17:14 Dose: 1 bottle Documented by: Emollient Ointment (Lanolin 100% Cream 40 Gm Tube) 1 gm TOP ASDIRECTED ONE Stop: 06/30/20 15:59 Last Admin: 06/30/20 17:15 Dose: 1 bottle Documented by: Oxytocin/Sodium Chloride (Pitocin In Ns 20 Units/1,000 Ml) 20 unit in 1,000 mls @ 999 mls/hr IV ONETIME ONE; Protocol Stop: 06/30/20 11:00 Last Admin: 06/30/20 16:23 Dose: Not Given Documented by: Penicillin G Potassium 5 (millunits/ Sodium Chloride) 50 mls @ 100 mls/hr IV ONETIME ONE Stop: 06/30/20 09:59 Last Admin: 06/30/20 09:57 Dose: 100 mls/hr Documented by: Penicillin G Potassium 2.5 (millunits/ Sodium Chloride) 50 mls @ 100 mls/hr IV Q4H [facility] Last Admin: 06/30/20 13:43 Dose: 100 mls/hr Documented by: Lactated Ringer's (Ringers, Lactated) 1,000 mls @ 100 mls/hr IV ASDIRECTED [facility] Last Infusion: 06/30/20 12:54 Dose: 25 mls/hr Documented by: Oxytocin/Sodium Chloride (Pitocin In Ns 20 Units/1,000 Ml) 20 unit in 1,000 mls @ 6 mls/hr IV TITRATE [place]; Protocol Last Titration: 06/30/20 15:45 Dose: 333 munits/min, 999 mls/hr Documented by: Lidocaine HCl (Lidocaine 1% 50 Ml Mdv) Confirm Administered Dose 50 ml .ROUTE .STK-MED ONE Stop: 06/30/20 09:47 Last Admin: 06/30/20 16:23 Dose: Not Given Documented by: Measles/Mumps/Rubella Vaccine Live (Measles, Mumps & Rubella Vaccine 0.5 Ml Sdv) 0.5 ml SUBCUT .ONCE ONE Stop: 07/01/20 09:01 Last Admin: 07/01/20 10:30 Dose: Not Given Documented by: Misoprostol (Misoprostol 50 Mcg (1/2 Of 100 Mcg) Tab) 50 mcg VAG ONETIME ONE Stop: 06/30/20 07:16 Last Admin: 06/30/20 08:00 Dose: 50 mcg Documented by: Melonie Mota (Melonie Mota Medicated Pads 100/Jar) 1 pad TOP ASDIRECTED ONE Stop: 06/30/20 15:59 Last Admin: 06/30/20 17:14 Dose: 1 bottle Documented by: - Infant Interaction Disposition, : in Room with Family Infant Interaction: Holding Infant Infant Feeding: Breastfed Infant; Nursed Well Support Person: - Recovery Exam Fundal Tone: Firm Fundal Level: 2 Fingerbreadths Below Umbilicus Fundal Placement: Midline Lochia Amount: Small Lochia Color: Rubra/Red Perineum Description: Intact, Minimal Bruising/Swelling Episiotomy/Laceration: None Bladder Status: Voiding Urinary Elimination: Voided - Exam General: Alert, Oriented HEENT: Pupils Equal, Pupils Reactive, Mucous Membr. Moist/[place] Neck: Supple Lungs: Clear to Auscultation, Normal Respiratory Effort Cardiovascular: Regular Rate, Regular Rhythm GI/Abdominal Exam: Normal Bowel Sounds, Soft, Non-Tender, Pelvis Stable Extremities: Normal Inspection, Normal Range of Motion, Non-Tender, No Pedal Edema, Normal Capillary Refill Skin: Warm, Dry, Intact Neurological: No New Focal Deficit Psy/Mental Status: Alert, Normal Affect, Normal Mood - Problem List & Annotations (1) () SNOMED Code(s): 852516660 Code(s): Z78.9 - OTHER SPECIFIED HEALTH STATUS Status: Acute Current Visit: Yes (2) Encounter for planned induction of labor SNOMED Code(s): 384109405 Code(s): Z34.90 - ENCNTR FOR SUPRVSN OF NORMAL , UNSP, UNSP TRIMESTER Status: Acute Current Visit: Yes (3) GBS carrier SNOMED Code(s): 7043983056318 Code(s): Z22.330 - CARRIER OF GROUP B STREPTOCOCCUS Status: Acute Current Visit: Yes (4) Normal labor and delivery SNOMED Code(s): 08528404, 20526409 Code(s): O80 - ENCOUNTER FOR FULL-TERM UNCOMPLICATED DELIVERY Status: Acute Current Visit: Yes - Problem List Review Problem List Initiated/Reviewed/Updated: Yes - My Orders Last 24 Hours: My Active Orders 07/01/20 08:00 Peripheral IV Discontinue [OM.PC] Routine 07/01/20 08:20 Vaccines to be Administered [RC] PER UNIT ROUTINE Docusate Sodium [Colace] 100 mg PO DAILY PRN 07/01/20 16:30 Lactobacillus Rhamnosus GG [Culturelle] 1 cap PO DAILY 07/03/20 05:11 CBC WITH AUTO DIFF [HEME] AM - Assessment Assessment:: 06/30/20 24 year old G2 now P2 39 2/7 weeks gestation, without complications male infant, 07/01/20 PP day 1, no complications FF and bleeding light AVSS going very well Rubella non-immune WBC 20.8, hgb 10.9 07/02/20 PP day 2, no complications Patient had diarrhea yesterday and was started on probiotic, she thinks she encountered a stomach virus at her daycare, feels good this morning going extremely well WBC <13 today FF and bleeding light - Plan Plan:: 06/30/20 24 year old 39 2/7 weeks IUP, planned induction reactive NST, baseline FHT 150, cat one strip CE: 3/75/0 soft anterior Plan Miso 50 MCG vaginally placed at 0800 Monitor for active labor maybe up and about after initial one of monitoring reassess at noon, AROM if able Plan for vaginal delivery Treat GBS 06/30/20 routine care GSB treated, 48 hour stay needs MMR booster support 07/01/20 Routine cares support CBC in am to recheck WBC MMR ordered Colace ordered for constipation Anticipate discharge home tomorrow 07/02/20 6 week check support Discharge home today
== END 2020-07-02 11:15 | disposition home or self-care (01) | DRG 807 ==
LOC: JP.OB 06:57 → OBSVTOIN 15:37 → JP.OB 15:37 → JP.MS 18:30
PROVIDERS: ADMIT Nurse Practitioner Family; ATTEND Nurse Practitioner Family
PROC: 10E0XZZ Delivery of Products of Conception, External Approach (ICD-10-PCS; principal; 2020-06-30)
PROC: 10907ZC Drainage of Amniotic Fluid, Therapeutic from Products of Conception, Via Natural or Artificial Opening (ICD-10-PCS; 2020-06-30)
PROC: 3E0P7VZ Introduction of Hormone into Female Reproductive, Via Natural or Artificial Opening (ICD-10-PCS; 2020-06-30)
DX: O99.824 Streptococcus B carrier state complicating childbirth (principal); Z37.0 Single live birth; Z3A.39 39 weeks gestation of pregnancy; O69.81X0 Labor and delivery complicated by cord around neck, without compression, not applicable or unspecified; Z20.822 Contact with and (suspected) exposure to COVID-19; Z91.09 Other allergy status, other than to drugs and biological substances
CPT/HCPCS: 36415; 80305-QW; 81001; 85025; 85027; A9270-GY; J2540; J2590; J7120; U0002